=== PATIENT | male | born 1955 | race Caucasian/White ===

== ENCOUNTER 2016-12-24 10:04 | Emergency (ER) | payer OTHER ==
[~2016-12-24] VITALS: Ht 198.1 cm; Wt 120.2 kg
[~2016-12-24 10:04] MED LIST: FLEXERIL10 MG PO; FLEXERIL5 MG PO; FLONASE 0.05% 121 EA NAS; HYDROCODONE BIT1 T11 PO; KEFLEX500 MG PO; MOTRIN800 MG PO; NKHM; NORCO 325 MG-101 TAB PO; SALETO800 MG PO; TRAMADOL50 MG PO
[2016-12-24] MEDS ORDERED: 'PARAFON FORTE500 M1 PO (10:38)
[2016-12-24] MEDS ORDERED: PREDNISONE10 MG PO (10:38)
== END 2016-12-24 11:31 | disposition home or self-care (01) ==
LOC: ED 10:04
DX: M54.5 Low back pain (principal); G89.29 Other chronic pain; R03.0 Elevated blood-pressure reading, without diagnosis of hypertension; F17.200 Nicotine dependence, unspecified, uncomplicated; Z88.0 Allergy status to penicillin

== ENCOUNTER 2018-08-07 16:06 | Emergency (ER) | payer MEDICARE ==
[~2018-08-07] VITALS: Ht 198.1 cm; Wt 129.3 kg
[~2018-08-07 16:06] MED LIST changes: +'PARAFON FORTE500 M1 PO; +PREDNISONE10 MG PO
== END 2018-08-07 17:19 | disposition home or self-care (01) ==
LOC: ED 16:06
DX: R60.0 Localized edema (principal); G89.29 Other chronic pain; K21.9 Gastro-esophageal reflux disease without esophagitis; Z79.899 Other long term (current) drug therapy; Z88.0 Allergy status to penicillin

== ENCOUNTER 2019-04-07 09:13 | Emergency (ER) | payer MEDICARE ==
[~2019-04-07] VITALS: Ht 198.1 cm; Wt 131.5 kg
[2019-04-07] MEDS ORDERED: NORCO 5-325 TA1 EACH PO (09:48)
[2019-04-07] MEDS ORDERED: CYCLOBENZAPRINE5 M3 PO (09:48)
[2019-04-07] MEDS ORDERED: NAPROSYN500 MG PO (09:48)
== END 2019-04-07 09:57 | disposition home or self-care (01) ==
LOC: ED 09:13
DX: M54.16 Radiculopathy, lumbar region (principal); M54.42 Lumbago with sciatica, left side; Z88.0 Allergy status to penicillin

== ENCOUNTER 2019-08-22 16:54 | Emergency (ER) | payer MEDICARE ==
[~2019-08-22 16:54] MED LIST changes: +CYCLOBENZAPRINE5 M3 PO; +NAPROSYN500 MG PO; +NORCO 5-325 TA1 EACH PO
== END 2019-08-22 17:12 | disposition left against medical advice (07) ==
LOC: ED 16:54
DX: R11.0 Nausea (principal); Z53.21 Procedure and treatment not carried out due to patient leaving prior to being seen by health care provider

== ENCOUNTER → 2020-01-20 | Outpatient (CLI) | payer MEDICARE ==
[~2020-01-20] MED LIST changes: +Carafate1 GM PO; +PROTONIX40 MG PO
== END | disposition home or self-care (01) ==
LOC: COVID19 09:32
PROVIDERS: ATTEND Family Medicine
DX: Z20.828 Contact with and (suspected) exposure to other viral communicable diseases (principal)

== ENCOUNTER 2020-01-26 05:09 | Inpatient (IN) | payer MEDICARE ==
[~2020-01-26] VITALS: Wt 155.0 kg
[~2020-01-26 05:09] MED LIST changes: -Carafate1 GM PO; -PROTONIX40 MG PO
[2020-01-26 05:17] VITALS: BP 114/72
[2020-01-26 06:33] LABS: BASO # 0.1 10*3/uL (0.0-0.1); BASO % 0.3 % (0.0-1.0); HEMATOCRIT 36.8 % (42.0-52.0); LYMPH # 1.1 10*3/uL (1.3-4.4); LYMPH % 5.9 % (27.0-41.0); MEAN CELL VOLUME 90.9 fl (80.0-94.0); MEAN CORPUSCULAR HGB 31.1 pg (27.0-31.0); MEAN CORPUSCULAR HGB CONC 34.2 g/dl (33.0-37.0); MEAN PLATELET VOLUME 10.4 fl (9.6-12.3); MONO # 0.6 10*3/uL (0.1-1.0); MONO % 3.4 % (3.0-9.0); NEUT # 16.5 10*3/uL (2.3-7.9); NEUT % 89.9 % (47.0-73.0); PLATELET COUNT AUTOMATED 281 10*3/uL (130-400); RED BLOOD COUNT 4.05 10*6/uL (4.50-5.90); RED CELL DISTRI WIDTH 11.9 % (0-14.5); WHITE BLOOD COUNT 18.4 10*3/uL (4.8-10.8)
[2020-01-26 06:49] LABS: INTERNATIONAL NORM RATIO 1.1 (2.0-3.5)
[2020-01-26 06:50] LABS: ALBUMIN 3.5 gm/dl (3.1-4.5); ALKALINE PHOSPHATASE 56 U/L (45-117); BUN 40 mg/dl (7-24); CHLORIDE 107 mmol/L (98-107); CREATININE 1.13 mg/dL (0.70-1.30); POTASSIUM 3.3 mmol/L (3.5-5.1); SGOT/AST 22 IU/L (3-35); SGPT/ALT 43 U/L (12-78); SODIUM 141 mmol/L (136-145); TOTAL PROTEIN 6.8 gm/dL (6.4-8.2)
[2020-01-26 06:58] LABS: TROPONIN I < 0.015 ng/ml (<0.045)
[2020-01-26 07:35] VITALS: BP 102/70
[2020-01-26 10:03] VITALS: BP 108/48
[2020-01-26 10:43] LABS: HEMATOCRIT 35.1 % (42.0-52.0)
[2020-01-26 11:42] VITALS: BP 92/71
[2020-01-26 16:00] VITALS: BP 122/69
[2020-01-26 18:50] LABS: BILIRUBIN Negative (Negative); BLOOD Negative (Negative); CLARITY Clear (Clear); COLOR Yellow (Yellow); GLUCOSE Negative (Negative); KETONE Negative (Negative); LEUKO ESTERASE Negative (Negative); NITRITE Negative (Negative); SPECIFIC GRAVITY 1.025 (1.001-1.030)
[2020-01-26 18:57] LABS: EPITHELIAL CELLS 0-2; RBC 0-2 rbc/hpf (0-2)
[2020-01-26 18:58] LABS: BACTERIA 1+
[2020-01-26 20:00] VITALS: BP 110/49
[2020-01-27] VITALS (23 sets, daily range): BP systolic 83–127; BP diastolic 46–75
[2020-01-27 07:07] LABS: BUN 41 mg/dl (7-24); CHLORIDE 109 mmol/L (98-107); CHOLESTEROL 115 mg/dL (<200); CREATININE 1.09 mg/dL (0.70-1.30); POTASSIUM 3.6 mmol/L (3.5-5.1); SODIUM 141 mmol/L (136-145); TRIGLYCERIDES 119 mg/dl (<150); VLDL CHOLESTEROL 24 mg/dL (6-40)
[2020-01-27 07:15] LABS: HDL CHOLESTEROL 27 mg/dl (40-60); LDL CHOLESTEROL 64 mg/dL (9-159)
[2020-01-27 07:27] LABS: BASO # 0.1 10*3/uL (0.0-0.1); BASO % 0.6 % (0.0-1.0); EOS # 0.1 10*3/uL (0.0-0.4); EOS % 0.6 % (1.0-4.0); HEMATOCRIT 25.9 % (42.0-52.0); LYMPH # 2.1 10*3/uL (1.3-4.4); MEAN CORPUSCULAR HGB 31.3 pg (27.0-31.0); MEAN CORPUSCULAR HGB CONC 32.8 g/dl (33.0-37.0); MEAN PLATELET VOLUME 11.1 fl (9.6-12.3); MONO # 0.7 10*3/uL (0.1-1.0); MONO % 5.3 % (3.0-9.0); NEUT # 10.2 10*3/uL (2.3-7.9); PLATELET COUNT AUTOMATED 226 10*3/uL (130-400); RED BLOOD COUNT 2.72 10*6/uL (4.50-5.90); RED CELL DISTRI WIDTH 12.4 % (0-14.5); WHITE BLOOD COUNT 13.3 10*3/uL (4.8-10.8)
[2020-01-27 07:31] LABS: MEAN CELL VOLUME 95.2 fl (80.0-94.0)
[2020-01-27 20:46] LABS: HEMATOCRIT 20.5 % (42.0-52.0)
[2020-01-28] VITALS (22 sets, daily range): BP systolic 88–178; BP diastolic 50–113
[2020-01-28 02:26] LABS: HEMATOCRIT 19.3 % (42.0-52.0)
[2020-01-28 08:12] LABS: MEAN CORPUSCULAR HGB 31.5 pg (27.0-31.0); MEAN CORPUSCULAR HGB CONC 34.4 g/dl (33.0-37.0); MEAN PLATELET VOLUME 10.9 fl (9.6-12.3); NUCLEATED RED BLOOD CELL 0.3 10*3/uL (0.0-0.0); NUCLEATED RED BLOOD CELL 1.3 % (0.0-0.0); RED BLOOD COUNT 2.13 10*6/uL (4.50-5.90); RED CELL DISTRI WIDTH 13.8 % (0-14.5); WHITE BLOOD COUNT 20.5 10*3/uL (4.8-10.8)
[2020-01-28 08:15] LABS: MEAN CELL VOLUME 91.5 fl (80.0-94.0); PLATELET COUNT AUTOMATED 150 10*3/uL (130-400)
[2020-01-28 08:19] LABS: HEMATOCRIT 19.5 % (42.0-52.0)
[2020-01-28 08:32] LABS: PLATELET SUFFICIENCY NORMAL (NORMAL); POLYCHROMASIA SLIGHT; TOTAL CELLS COUNTED 100 #CELLS
[2020-01-28 08:33] LABS: OVALOCYTES FEW
[2020-01-28 15:27] LABS: ABG BASE EXCESS -3.2 mmol/L (-2.0-2.0); ARTERIAL BLOOD GAS PH 7.392 (7.35-7.45)
[2020-01-28 16:18] LABS: HEMATOCRIT 22.4 % (42.0-52.0); MEAN CELL VOLUME 92.2 fl (80.0-94.0); MEAN CORPUSCULAR HGB 29.6 pg (27.0-31.0); MEAN CORPUSCULAR HGB CONC 32.1 g/dl (33.0-37.0); MEAN PLATELET VOLUME 10.7 fl (9.6-12.3); NUCLEATED RED BLOOD CELL 0.8 10*3/uL (0.0-0.0); NUCLEATED RED BLOOD CELL 2.6 % (0.0-0.0); PLATELET COUNT AUTOMATED 170 10*3/uL (130-400); RED BLOOD COUNT 2.43 10*6/uL (4.50-5.90); WHITE BLOOD COUNT 29.3 10*3/uL (4.8-10.8)
[2020-01-28 16:37] LABS: PLATELET SUFFICIENCY NORMAL (NORMAL); TOTAL CELLS COUNTED 100 #CELLS
[2020-01-28 19:50] LABS: ABG BASE EXCESS -1.9 mmol/L (-2.0-2.0); ARTERIAL BLOOD GAS PH 7.44 (7.35-7.45)
[2020-01-29] VITALS (16 sets, daily range): BP systolic 99–140; BP diastolic 46–74
[2020-01-29 06:09] LABS: ALBUMIN 2.3 gm/dl (3.1-4.5); BUN 36 mg/dl (7-24); CHLORIDE 111 mmol/L (98-107); POTASSIUM 3.4 mmol/L (3.5-5.1); SGOT/AST 10 IU/L (3-35); SGPT/ALT 18 U/L (12-78); SODIUM 141 mmol/L (136-145)
[2020-01-29 06:12] LABS: ALKALINE PHOSPHATASE 31 U/L (45-117); CREATININE 1.07 mg/dL (0.70-1.30); TOTAL PROTEIN 4.6 gm/dL (6.4-8.2)
[2020-01-29 06:26] LABS: MEAN CELL VOLUME 91.7 fl (80.0-94.0); MEAN CORPUSCULAR HGB 30.9 pg (27.0-31.0); MEAN CORPUSCULAR HGB CONC 33.7 g/dl (33.0-37.0); NUCLEATED RED BLOOD CELL 1.1 10*3/uL (0.0-0.0); NUCLEATED RED BLOOD CELL 4.8 % (0.0-0.0); PLATELET COUNT AUTOMATED 160 10*3/uL (130-400); RED BLOOD COUNT 2.04 10*6/uL (4.50-5.90); WHITE BLOOD COUNT 22.4 10*3/uL (4.8-10.8)
[2020-01-29 06:32] LABS: HEMATOCRIT 18.7 % (42.0-52.0)
[2020-01-29 07:14] LABS: BASOPHILS 1 % (0-1); TOTAL CELLS COUNTED 100 #CELLS
[2020-01-29 07:15] LABS: PLATELET SUFFICIENCY NORMAL (NORMAL); POLYCHROMASIA SLIGHT
[2020-01-29 07:52] LABS: ABG BASE EXCESS -0.5 mmol/L (-2.0-2.0); ARTERIAL BLOOD GAS PH 7.433 (7.35-7.45)
[2020-01-29 16:23] LABS: ABG BASE EXCESS 0.2 mmol/L (-2.0-2.0); ARTERIAL BLOOD GAS PH 7.456 (7.35-7.45)
[2020-01-29 16:58] LABS: HEMATOCRIT 23.3 % (42.0-52.0); MEAN CELL VOLUME 90.7 fl (80.0-94.0); MEAN CORPUSCULAR HGB 30.7 pg (27.0-31.0); MEAN CORPUSCULAR HGB CONC 33.9 g/dl (33.0-37.0); MEAN PLATELET VOLUME 10.9 fl (9.6-12.3); NUCLEATED RED BLOOD CELL 1.1 10*3/uL (0.0-0.0); NUCLEATED RED BLOOD CELL 4.9 % (0.0-0.0); PLATELET COUNT AUTOMATED 147 10*3/uL (130-400); RED BLOOD COUNT 2.57 10*6/uL (4.50-5.90); RED CELL DISTRI WIDTH 14.6 % (0-14.5); WHITE BLOOD COUNT 21.9 10*3/uL (4.8-10.8)
[2020-01-29 17:31] LABS: PLATELET SUFFICIENCY NORMAL (NORMAL); TOTAL CELLS COUNTED 100 #CELLS
[2020-01-29 17:32] LABS: POLYCHROMASIA SLIGHT
[2020-01-29 19:54] LABS: ABG BASE EXCESS 0.9 mmol/L (-2.0-2.0); ARTERIAL BLOOD GAS PH 7.485 (7.35-7.45)
[2020-01-30] VITALS: BP 125/45
[2020-01-30 04:00] VITALS: BP 131/51
[2020-01-30 06:14] LABS: MEAN CELL VOLUME 92.5 fl (80.0-94.0); MEAN CORPUSCULAR HGB 30.8 pg (27.0-31.0); MEAN CORPUSCULAR HGB CONC 33.3 g/dl (33.0-37.0); MEAN PLATELET VOLUME 11.2 fl (9.6-12.3); NUCLEATED RED BLOOD CELL 0.5 10*3/uL (0.0-0.0); NUCLEATED RED BLOOD CELL 3.1 % (0.0-0.0); PLATELET COUNT AUTOMATED 148 10*3/uL (130-400); RED BLOOD COUNT 2.27 10*6/uL (4.50-5.90); RED CELL DISTRI WIDTH 14.6 % (0-14.5); WHITE BLOOD COUNT 17.6 10*3/uL (4.8-10.8)
[2020-01-30 06:15] LABS: ALBUMIN 2.1 gm/dl (3.1-4.5); CHLORIDE 114 mmol/L (98-107); CREATININE 0.78 mg/dL (0.70-1.30); POTASSIUM 3.1 mmol/L (3.5-5.1); SGOT/AST 23 IU/L (3-35); SGPT/ALT 16 U/L (12-78); SODIUM 146 mmol/L (136-145)
[2020-01-30 06:17] LABS: ALKALINE PHOSPHATASE 40 U/L (45-117); TOTAL PROTEIN 4.5 gm/dL (6.4-8.2)
[2020-01-30 06:20] LABS: BUN 21 mg/dl (7-24)
[2020-01-30 08:00] VITALS: BP 134/56
[2020-01-30 08:12] LABS: BASOPHILS 1 % (0-1); PLATELET SUFFICIENCY NORMAL (NORMAL); POLYCHROMASIA SLIGHT; TOTAL CELLS COUNTED 100 #CELLS
[2020-01-30 08:13] LABS: SCHISTOCYTES FEW
[2020-01-30 12:00] VITALS: BP 146/47
[2020-01-30 13:03] LABS: HEMATOCRIT 21.7 % (42.0-52.0); MEAN CELL VOLUME 93.5 fl (80.0-94.0); MEAN CORPUSCULAR HGB CONC 33.2 g/dl (33.0-37.0); NUCLEATED RED BLOOD CELL 0.3 10*3/uL (0.0-0.0); NUCLEATED RED BLOOD CELL 2.1 % (0.0-0.0); PLATELET COUNT AUTOMATED 144 10*3/uL (130-400); RED BLOOD COUNT 2.32 10*6/uL (4.50-5.90); RED CELL DISTRI WIDTH 15.2 % (0-14.5); WHITE BLOOD COUNT 15.6 10*3/uL (4.8-10.8)
[2020-01-30 13:23] LABS: TOTAL CELLS COUNTED 100 #CELLS
[2020-01-30 13:24] LABS: PLATELET SUFFICIENCY NORMAL (NORMAL); POLYCHROMASIA SLIGHT
[2020-01-30 13:27] LABS: BUN 17 mg/dl (7-24); CHLORIDE 112 mmol/L (98-107); CREATININE 0.79 mg/dL (0.70-1.30); POTASSIUM 3.3 mmol/L (3.5-5.1); SODIUM 143 mmol/L (136-145)
[2020-01-30 16:00] VITALS: BP 138/49
[2020-01-30 20:00] VITALS: BP 129/77
[2020-01-31] VITALS (13 sets, daily range): BP systolic 109–140; BP diastolic 51–87
[2020-01-31 05:55] LABS: ALKALINE PHOSPHATASE 77 U/L (45-117); BUN 12 mg/dl (7-24); CHLORIDE 111 mmol/L (98-107); CREATININE 0.72 mg/dL (0.70-1.30); POTASSIUM 3.1 mmol/L (3.5-5.1); SGOT/AST 33 IU/L (3-35); SGPT/ALT 25 U/L (12-78); SODIUM 141 mmol/L (136-145); TOTAL PROTEIN 4.8 gm/dL (6.4-8.2)
[2020-01-31 06:01] LABS: HEMATOCRIT 21.1 % (42.0-52.0); MEAN CELL VOLUME 93.4 fl (80.0-94.0); MEAN CORPUSCULAR HGB 30.5 pg (27.0-31.0); MEAN CORPUSCULAR HGB CONC 32.7 g/dl (33.0-37.0); NUCLEATED RED BLOOD CELL 0.2 10*3/uL (0.0-0.0); NUCLEATED RED BLOOD CELL 1.7 % (0.0-0.0); PLATELET COUNT AUTOMATED 155 10*3/uL (130-400); RED BLOOD COUNT 2.26 10*6/uL (4.50-5.90); RED CELL DISTRI WIDTH 15.8 % (0-14.5); WHITE BLOOD COUNT 11.4 10*3/uL (4.8-10.8)
[2020-01-31 08:24] LABS: PLATELET SUFFICIENCY NORMAL (NORMAL); POLYCHROMASIA MODERATE; TOTAL CELLS COUNTED 100 #CELLS
[2020-01-31 14:17] LABS: HEMATOCRIT 26.7 % (42.0-52.0); MEAN CELL VOLUME 92.1 fl (80.0-94.0); MEAN CORPUSCULAR HGB 30.7 pg (27.0-31.0); MEAN CORPUSCULAR HGB CONC 33.3 g/dl (33.0-37.0); NUCLEATED RED BLOOD CELL 0.2 10*3/uL (0.0-0.0); NUCLEATED RED BLOOD CELL 1.8 % (0.0-0.0); PLATELET COUNT AUTOMATED 146 10*3/uL (130-400); RED CELL DISTRI WIDTH 16.1 % (0-14.5); WHITE BLOOD COUNT 10.4 10*3/uL (4.8-10.8)
[2020-01-31 14:30] LABS: BUN 11 mg/dl (7-24); CHLORIDE 111 mmol/L (98-107); CREATININE 0.72 mg/dL (0.70-1.30); SODIUM 141 mmol/L (136-145)
[2020-01-31 14:45] LABS: BASOPHILS 1 % (0-1); PLATELET SUFFICIENCY NORMAL (NORMAL); POLYCHROMASIA SLIGHT; TOTAL CELLS COUNTED 100 #CELLS
[2020-02-01] VITALS: BP 129/70
[2020-02-01 07:22] LABS: BUN 9 mg/dl (7-24); CHLORIDE 109 mmol/L (98-107); CREATININE 0.76 mg/dL (0.70-1.30); HEMATOCRIT 27.9 % (42.0-52.0); MEAN CELL VOLUME 92.7 fl (80.0-94.0); MEAN CORPUSCULAR HGB 30.6 pg (27.0-31.0); MEAN PLATELET VOLUME 10.1 fl (9.6-12.3); NUCLEATED RED BLOOD CELL 0.1 10*3/uL (0.0-0.0); NUCLEATED RED BLOOD CELL 1.1 % (0.0-0.0); PLATELET COUNT AUTOMATED 187 10*3/uL (130-400); RED BLOOD COUNT 3.01 10*6/uL (4.50-5.90); RED CELL DISTRI WIDTH 16.4 % (0-14.5); SODIUM 141 mmol/L (136-145); WHITE BLOOD COUNT 9.4 10*3/uL (4.8-10.8)
[2020-02-01 08:00] VITALS: BP 105/77
[2020-02-01 09:09] LABS: BASOPHILS 1 % (0-1); PLATELET SUFFICIENCY NORMAL (NORMAL); POLYCHROMASIA MODERATE; TOTAL CELLS COUNTED 100 #CELLS
[2020-02-01] MEDS ORDERED: PROTONIX40 MG PO (10:51)
[2020-02-01] MEDS ORDERED: Carafate1 GM PO (10:51)
== END 2020-02-01 11:00 | disposition home or self-care (01) | DRG 377 ==
LOC: ED 05:09 → EDHOLD 10:31 → ICCU 10:31 → 5E 10:31 → ICCU 01-28 12:00 → 5E 01-31 14:38
PROVIDERS: Emergency Medicine; Hospitalist; Internal Medicine; Internal Medicine Critical Care Medicine; Registered Nurse; Social Worker Clinical; Student in an Organized Health Care Education/Training Program; Surgery; ADMIT Emergency Medicine; ATTEND Emergency Medicine
PROC: 02HV33Z Insertion of Infusion Device into Superior Vena Cava, Percutaneous Approach (ICD-10-PCS; 2020-01-26)
PROC: 0HQ1XZZ Repair Face Skin, External Approach (ICD-10-PCS; 2020-01-26)
PROC: 30233N1 Transfusion of Nonautologous Red Blood Cells into Peripheral Vein, Percutaneous Approach (ICD-10-PCS; 2020-01-27)
PROC: 0DB98ZX Excision of Duodenum, Via Natural or Artificial Opening Endoscopic, Diagnostic (ICD-10-PCS; 2020-01-27)
PROC: 0DB68ZX Excision of Stomach, Via Natural or Artificial Opening Endoscopic, Diagnostic (ICD-10-PCS; 2020-01-27)
PROC: 30233K1 Transfusion of Nonautologous Frozen Plasma into Peripheral Vein, Percutaneous Approach (ICD-10-PCS; principal; 2020-01-28)
PROC: 30233R1 Transfusion of Nonautologous Platelets into Peripheral Vein, Percutaneous Approach (ICD-10-PCS; 2020-01-28)
PROC: 0W3P8ZZ Control Bleeding in Gastrointestinal Tract, Via Natural or Artificial Opening Endoscopic (ICD-10-PCS; 2020-01-28)
PROC: 0BH17EZ Insertion of Endotracheal Airway into Trachea, Via Natural or Artificial Opening (ICD-10-PCS; 2020-01-28)
PROC: 5A1935Z Respiratory Ventilation, Less than 24 Consecutive Hours (ICD-10-PCS; 2020-01-28)
PROC: 5A1935Z Respiratory Ventilation, Less than 24 Consecutive Hours (ICD-10-PCS; 2020-01-29)
DX: K26.4 Chronic or unspecified duodenal ulcer with hemorrhage (principal); E43 Unspecified severe protein-calorie malnutrition; K21.01 Gastro-esophageal reflux disease with esophagitis, with bleeding; D62 Acute posthemorrhagic anemia; I95.1 Orthostatic hypotension; K29.71 Gastritis, unspecified, with bleeding; K29.81 Duodenitis with bleeding; E87.6 Hypokalemia; S01.81XA Laceration without foreign body of other part of head, initial encounter; E16.2 Hypoglycemia, unspecified; W19.XXXA Unspecified fall, initial encounter; E66.9 Obesity, unspecified; E83.39 Other disorders of phosphorus metabolism; E87.8 Other disorders of electrolyte and fluid balance, not elsewhere classified; Z88.0 Allergy status to penicillin; Z79.899 Other long term (current) drug therapy; Z79.1 Long term (current) use of non-steroidal anti-inflammatories (NSAID); Z68.31 Body mass index [BMI] 31.0-31.9, adult; Y93.89 Activity, other specified; Y92.89 Other specified places as the place of occurrence of the external cause; Y99.8 Other external cause status; Z88.5 Allergy status to narcotic agent; Z88.8 Allergy status to other drugs, medicaments and biological substances

== ENCOUNTER 2020-02-03 10:53 | Observation (INO) | payer MEDICARE ==
[~2020-02-03] VITALS: Ht 198.1 cm; Wt 119.0 kg
[~2020-02-03 10:53] MED LIST changes: +Carafate1 GM PO; +PROTONIX40 MG PO
[2020-02-03 11:54] VITALS: BP 92/52
[2020-02-03 13:12] LABS: HEMATOCRIT 37.8 % (42.0-52.0); MEAN CELL VOLUME 93.6 fl (80.0-94.0); MEAN CORPUSCULAR HGB 30.4 pg (27.0-31.0); MEAN CORPUSCULAR HGB CONC 32.5 g/dl (33.0-37.0); MEAN PLATELET VOLUME 9.6 fl (9.6-12.3); PLATELET COUNT AUTOMATED 379 10*3/uL (130-400); RED BLOOD COUNT 4.04 10*6/uL (4.50-5.90); RED CELL DISTRI WIDTH 17.2 % (0-14.5)
[2020-02-03 13:24] LABS: ACT PARTIAL THROMBO TIME 26.5 SECONDS (20.0-32.1); INTERNATIONAL NORM RATIO 1.2 (2.0-3.5)
[2020-02-03 13:28] LABS: ALKALINE PHOSPHATASE 205 U/L (45-117); BUN 25 mg/dl (7-24); CHLORIDE 101 mmol/L (98-107); CREATININE 1.48 mg/dL (0.70-1.30); LIPASE 222 U/L (73-393); POTASSIUM 2.8 mmol/L (3.5-5.1); SGOT/AST 72 IU/L (3-35); SGPT/ALT 136 U/L (12-78); SODIUM 139 mmol/L (136-145); TOTAL PROTEIN 7.5 gm/dL (6.4-8.2)
[2020-02-03 13:29] LABS: TROPONIN I < 0.015 ng/ml (<0.045)
[2020-02-03 13:33] LABS: TOTAL CELLS COUNTED 100 #CELLS
[2020-02-03 13:34] LABS: PLATELET SUFFICIENCY NORMAL (NORMAL)
[2020-02-03 14:00] VITALS: BP 103/78
--- NOTE | 2020-02-03 14:36 | NUR ---
PT STATES "I AM UNABLE TO PEE AT THIS TIME AND I DON'T WANT CATHED"
[2020-02-03 17:22] VITALS: BP 110/66
[2020-02-03 19:20] VITALS: BP 103/56
[2020-02-03 21:40] VITALS: BP 109/74
[2020-02-03 21:45] VITALS: BP 103/78
--- NOTE | 2020-02-03 21:45 | NUR ---
A 64, admitted to , under the services of JACE Patel DO with a diagnosis of NAUSEA & VOMITING/DEHYDRATION/HYPOKALEMIA. Chief complaint is TIRED AND HEARTBURN. Patient arrived via stretcher from ER. Monitor applied. Initial assessment completed. Vital signs taken and recorded. JACE PATEL DO notified of admission to the unit. Orders received. See assessment for past medical history, medications and allergies. Patient and/or family oriented to unit. [facility] reviewed. Clothing/patient valuable form completed. DOUGLAS SANCHEZ
[2020-02-04] VITALS: BP 116/56
[2020-02-04 05:48] LABS: BILIRUBIN Negative (Negative); BLOOD Trace-Lysed (Negative); CLARITY Clear (Clear); COLOR Yellow (Yellow); GLUCOSE Negative (Negative); KETONE Negative (Negative); LEUKO ESTERASE Negative (Negative); NITRITE Negative (Negative); SPECIFIC GRAVITY 1.015 (1.001-1.030); UROBILINOGEN 0.2 E.U./dl (0.0-1.0)
[2020-02-04 06:02] LABS: WBC 0-2 wbc/hpf (0-5)
[2020-02-04 06:50] LABS: BASO % 0.3 % (0.0-1.0); EOS # 0.2 10*3/uL (0.0-0.4); EOS % 1.3 % (1.0-4.0); HEMATOCRIT 31.9 % (42.0-52.0); LYMPH # 1.7 10*3/uL (1.3-4.4); LYMPH % 12.5 % (27.0-41.0); MEAN CELL VOLUME 95.2 fl (80.0-94.0); MEAN CORPUSCULAR HGB 30.7 pg (27.0-31.0); MEAN CORPUSCULAR HGB CONC 32.3 g/dl (33.0-37.0); MEAN PLATELET VOLUME 9.6 fl (9.6-12.3); MONO # 0.8 10*3/uL (0.1-1.0); MONO % 6.1 % (3.0-9.0); NEUT # 10.4 10*3/uL (2.3-7.9); NEUT % 78.7 % (47.0-73.0); PLATELET COUNT AUTOMATED 318 10*3/uL (130-400); RED BLOOD COUNT 3.35 10*6/uL (4.50-5.90); RED CELL DISTRI WIDTH 16.9 % (0-14.5); WHITE BLOOD COUNT 13.2 10*3/uL (4.8-10.8)
[2020-02-04 07:02] LABS: ACT PARTIAL THROMBO TIME 26.5 SECONDS (20.0-32.1); INTERNATIONAL NORM RATIO 1.2 (2.0-3.5)
[2020-02-04 07:06] LABS: ALBUMIN 2.4 gm/dl (3.1-4.5); ALKALINE PHOSPHATASE 140 U/L (45-117); BUN 18 mg/dl (7-24); CHLORIDE 106 mmol/L (98-107); CREATININE 0.94 mg/dL (0.70-1.30); POTASSIUM 3.2 mmol/L (3.5-5.1); SGOT/AST 55 IU/L (3-35); SGPT/ALT 117 U/L (12-78); SODIUM 140 mmol/L (136-145); TOTAL PROTEIN 5.8 gm/dL (6.4-8.2)
--- NOTE | 2020-02-04 07:22 | NUR ---
DR DENT NOTIFIED OF CONSULT. KEEP PT NPO FOR NOW.
[2020-02-04 08:00] VITALS: BP 103/51
[2020-02-04 09:00] LABS: VITAMIN D, 25-HYDROXY 20.1 ng/mL (30-100)
--- NOTE | 2020-02-04 11:05 | NUR ---
PT WANTING TO LEAVE AMA. RE; AT [facility].
--- NOTE | 2020-02-04 11:09 | NUR ---
DR JOHNSON IN TO SEE PT. ORDERS RECEIVED TO CALL DR DENT FOR DIET ORDERS.
--- NOTE | 2020-02-04 11:14 | NUR ---
CALLED DR DENT HE STATES TO KEP PT NPO TILL HE ARRIVE WITHIN THE NEXT 2 HRS.
--- NOTE | 2020-02-04 11:40 | NUR ---
PT STATES HE CAN WAIT NO LONGER "I NEED TO GET TO MY " AMA PAPER PROVIDED. PT SIGNED MONITOR AND IV REMOVED.
--- NOTE | 2020-02-04 11:41 | NUR ---
MEDICATION FROM THE PHARMACY RETURNED TO PATIENT.
--- NOTE | 2020-02-04 11:44 | NUR ---
PLATE DRYING MACHINE TENDER ATTEMPTED TO REACH PATIENT VIA PHONE CALL. THERE WAS NO ANSWER. PLATE DRYING MACHINE TENDER TO FOLLOW UP WITH PATIENT AT A LATER TIME.
--- NOTE | 2020-02-04 11:45 | NUR ---
DR TAI NOTIFIED OF PT SIGNING OUT AMA.
== END 2020-02-04 11:45 | disposition left against medical advice (07) ==
LOC: ED 10:53 → 5E 15:51 → EDHOLD 15:51 → 5E 21:01
PROVIDERS: Emergency Medicine; Hospitalist; ADMIT Internal Medicine; ATTEND Internal Medicine
DX: N17.0 Acute kidney failure with tubular necrosis (principal); R11.2 Nausea with vomiting, unspecified; E44.0 Moderate protein-calorie malnutrition; R65.10 Systemic inflammatory response syndrome (SIRS) of non-infectious origin without acute organ dysfunction; E87.6 Hypokalemia; E86.0 Dehydration; D64.9 Anemia, unspecified; K21.9 Gastro-esophageal reflux disease without esophagitis

== ENCOUNTER → 2020-02-24 | Outpatient (CLI) | payer MEDICARE ==
[~2020-02-24] MED LIST changes: +DULOXETINE HCL60 MG PO; +GAVISCON ES TA1 EACH PO; +K-LOR 20MEQ20 ME1 PO
[2020-02-24 11:18] LABS: HEMATOCRIT 41.9 % (42.0-52.0); MEAN CELL VOLUME 96.8 fl (80.0-94.0); MEAN CORPUSCULAR HGB 30.7 pg (27.0-31.0); MEAN CORPUSCULAR HGB CONC 31.7 g/dl (33.0-37.0); MEAN PLATELET VOLUME 10.2 fl (9.6-12.3); RED BLOOD COUNT 4.33 10*6/uL (4.50-5.90); RED CELL DISTRI WIDTH 14.6 % (0-14.5); WHITE BLOOD COUNT 6.3 10*3/uL (4.8-10.8)
[2020-02-24 11:46] LABS: ALBUMIN 3.3 gm/dl (3.1-4.5); ALKALINE PHOSPHATASE 80 U/L (45-117); BUN 9 mg/dl (7-24); CHLORIDE 111 mmol/L (98-107); CHOLESTEROL 224 mg/dL (<200); FREE T4 1.17 ng/dl (0.76-1.46); HDL CHOLESTEROL 40 mg/dl (40-60); LDL CHOLESTEROL 162 mg/dL (9-159); POTASSIUM 3.5 mmol/L (3.5-5.1); SGOT/AST 14 IU/L (3-35); SGPT/ALT 26 U/L (12-78); SODIUM 142 mmol/L (136-145); TRIGLYCERIDES 109 mg/dl (<150); VLDL CHOLESTEROL 22 mg/dL (6-40)
[2020-02-24 13:07] LABS: VITAMIN D, 25-HYDROXY 20.1 ng/mL (30-100)
== END | disposition home or self-care (01) ==
LOC: LAB 10:38
PROVIDERS: ATTEND Family Medicine
DX: Z12.5 Encounter for screening for malignant neoplasm of prostate (principal); E78.00 Pure hypercholesterolemia, unspecified; E55.9 Vitamin D deficiency, unspecified; R53.83 Other fatigue; K92.2 Gastrointestinal hemorrhage, unspecified; F41.1 Generalized anxiety disorder; E74.00 Glycogen storage disease, unspecified

== ENCOUNTER 2020-03-09 00:41 | Emergency (ER) | payer MEDICARE ==
[~2020-03-09] VITALS: Ht 198.1 cm; Wt 120.2 kg
[~2020-03-09 00:41] MED LIST changes: -DULOXETINE HCL60 MG PO; -GAVISCON ES TA1 EACH PO; -K-LOR 20MEQ20 ME1 PO
[2020-03-09 02:22] LABS: BILIRUBIN Negative (Negative); BLOOD Negative (Negative); CLARITY Clear (Clear); COLOR Yellow (Yellow); GLUCOSE Negative (Negative); KETONE Negative (Negative); LEUKO ESTERASE Negative (Negative); NITRITE Negative (Negative); PH 7.5 (4.5-8.0); SPECIFIC GRAVITY 1.015 (1.001-1.030); UROBILINOGEN 0.2 E.U./dl (0.0-1.0)
[2020-03-09 02:22] LABS: BASO # 0.1 10*3/uL (0.0-0.1); BASO % 0.8 % (0.0-1.0); EOS # 0.1 10*3/uL (0.0-0.4); EOS % 1.6 % (1.0-4.0); LYMPH # 1.2 10*3/uL (1.3-4.4); MEAN CELL VOLUME 93.5 fl (80.0-94.0); MEAN CORPUSCULAR HGB CONC 32.1 g/dl (33.0-37.0); MEAN PLATELET VOLUME 9.9 fl (9.6-12.3); MONO # 0.5 10*3/uL (0.1-1.0); MONO % 6.1 % (3.0-9.0); NEUT # 6.9 10*3/uL (2.3-7.9); NEUT % 77.2 % (47.0-73.0); PLATELET COUNT AUTOMATED 262 10*3/uL (130-400); RED CELL DISTRI WIDTH 13.2 % (0-14.5); WHITE BLOOD COUNT 8.9 10*3/uL (4.8-10.8)
[2020-03-09 02:35] LABS: INTERNATIONAL NORM RATIO 1.1 (2.0-3.5)
[2020-03-09 02:40] LABS: RBC 0-2 rbc/hpf (0-2); WBC 0-2 wbc/hpf (0-5)
[2020-03-09 02:40] LABS: ALBUMIN 3.5 gm/dl (3.1-4.5); ALKALINE PHOSPHATASE 71 U/L (45-117); BUN 11 mg/dl (7-24); CHLORIDE 109 mmol/L (98-107); CREATININE 1.11 mg/dL (0.70-1.30); SGOT/AST 10 IU/L (3-35); SGPT/ALT 23 U/L (12-78); SODIUM 142 mmol/L (136-145); TOTAL PROTEIN 7.3 gm/dL (6.4-8.2)
[2020-03-09 02:42] LABS: TROPONIN I < 0.015 ng/ml (<0.045)
[2020-03-09] MEDS ORDERED: K-LOR 20MEQ20 ME1 PO ×2 (05:17)
== END 2020-03-09 05:37 | disposition home or self-care (01) ==
LOC: ED 00:41
PROVIDERS: Emergency Medicine
DX: E87.6 Hypokalemia (principal); R41.0 Disorientation, unspecified; Z88.0 Allergy status to penicillin; Z79.899 Other long term (current) drug therapy; K21.9 Gastro-esophageal reflux disease without esophagitis

== ENCOUNTER 2020-03-20 15:22 | Emergency (ER) | payer MEDICARE ==
[~2020-03-20 15:22] MED LIST changes: +K-LOR 20MEQ20 ME1 PO
[2020-03-20 16:12] LABS: BASO # 0.1 10*3/uL (0.0-0.1); BASO % 0.9 % (0.0-1.0); EOS # 0.1 10*3/uL (0.0-0.4); EOS % 0.6 % (1.0-4.0); HEMATOCRIT 51.8 % (42.0-52.0); LYMPH # 1.3 10*3/uL (1.3-4.4); LYMPH % 12.3 % (27.0-41.0); MEAN CORPUSCULAR HGB 30.2 pg (27.0-31.0); MEAN CORPUSCULAR HGB CONC 32.8 g/dl (33.0-37.0); MEAN PLATELET VOLUME 10.3 fl (9.6-12.3); MONO # 0.5 10*3/uL (0.1-1.0); MONO % 5.1 % (3.0-9.0); NEUT # 8.5 10*3/uL (2.3-7.9); NEUT % 80.9 % (47.0-73.0); PLATELET COUNT AUTOMATED 316 10*3/uL (130-400); RED BLOOD COUNT 5.63 10*6/uL (4.50-5.90); RED CELL DISTRI WIDTH 12.8 % (0-14.5); WHITE BLOOD COUNT 10.6 10*3/uL (4.8-10.8)
[2020-03-20 16:23] LABS: INTERNATIONAL NORM RATIO 1.1 (2.0-3.5)
[2020-03-20 16:31] LABS: ALBUMIN 4.3 gm/dl (3.1-4.5); ALKALINE PHOSPHATASE 80 U/L (45-117); BUN 17 mg/dl (7-24); CHLORIDE 107 mmol/L (98-107); CREATININE 1.53 mg/dL (0.70-1.30); LIPASE 126 U/L (73-393); SGOT/AST 16 IU/L (3-35); SGPT/ALT 34 U/L (12-78); SODIUM 141 mmol/L (136-145); TOTAL PROTEIN 8.7 gm/dL (6.4-8.2)
[2020-03-20 16:33] LABS: TROPONIN I < 0.015 ng/ml (<0.045)
== END 2020-03-20 18:49 | disposition home or self-care (01) ==
LOC: ED 15:22
PROVIDERS: Physician Assistant
DX: K52.9 Noninfective gastroenteritis and colitis, unspecified (principal); K21.9 Gastro-esophageal reflux disease without esophagitis; Z88.0 Allergy status to penicillin; Z79.899 Other long term (current) drug therapy

== ENCOUNTER 2020-03-21 15:10 | Observation (INO) | payer MEDICARE ==
[~2020-03-21] VITALS: Ht 198.1 cm; Wt 115.9 kg
[2020-03-21 15:17] VITALS: BP 111/76
[2020-03-21 16:09] LABS: BASO # 0.1 10*3/uL (0.0-0.1); BASO % 0.5 % (0.0-1.0); EOS % 0.1 % (1.0-4.0); HEMATOCRIT 51.4 % (42.0-52.0); LYMPH # 1.4 10*3/uL (1.3-4.4); LYMPH % 9.3 % (27.0-41.0); MEAN CELL VOLUME 91.1 fl (80.0-94.0); MEAN CORPUSCULAR HGB 30.3 pg (27.0-31.0); MEAN CORPUSCULAR HGB CONC 33.3 g/dl (33.0-37.0); MEAN PLATELET VOLUME 10.5 fl (9.6-12.3); MONO # 0.8 10*3/uL (0.1-1.0); MONO % 5.5 % (3.0-9.0); NEUT # 12.8 10*3/uL (2.3-7.9); NEUT % 84.3 % (47.0-73.0); PLATELET COUNT AUTOMATED 337 10*3/uL (130-400); RED BLOOD COUNT 5.64 10*6/uL (4.50-5.90); RED CELL DISTRI WIDTH 12.8 % (0-14.5); WHITE BLOOD COUNT 15.2 10*3/uL (4.8-10.8)
[2020-03-21 16:23] LABS: CREATININE 1.8 mg/dL (0.70-1.30); POTASSIUM 3.3 mmol/L (3.5-5.1); TOTAL PROTEIN 8.5 gm/dL (6.4-8.2)
[2020-03-21 16:30] LABS: ACT PARTIAL THROMBO TIME 27.1 SECONDS (20.0-32.1); INTERNATIONAL NORM RATIO 1.1 (2.0-3.5)
[2020-03-21 18:31] VITALS: BP 114/86
[2020-03-21 20:00] VITALS: BP 166/85
[2020-03-21 20:40] VITALS: BP 142/85
[2020-03-22] VITALS: BP 144/92
[2020-03-22 08:00] VITALS: BP 128/72
[2020-03-22 12:00] VITALS: BP 127/89
== END 2020-03-22 16:20 | disposition home or self-care (01) ==
LOC: ED 15:10 → EDHOLD 17:43 → 5E 17:43
PROVIDERS: Emergency Medicine; ADMIT Internal Medicine; ATTEND Internal Medicine
DX: A08.4 Viral intestinal infection, unspecified (principal); R19.7 Diarrhea, unspecified; E86.0 Dehydration; E87.6 Hypokalemia; K21.9 Gastro-esophageal reflux disease without esophagitis; E43 Unspecified severe protein-calorie malnutrition; K26.9 Duodenal ulcer, unspecified as acute or chronic, without hemorrhage or perforation; R42 Dizziness and giddiness

== ENCOUNTER → 2020-03-24 | Outpatient (CLI) | payer MEDICARE ==
[~2020-03-24] MED LIST changes: +DULOXETINE HCL60 MG PO; +GAVISCON ES TA1 EACH PO
[2020-03-24 09:41] LABS: HEMATOCRIT 44.2 % (42.0-52.0); MEAN CELL VOLUME 92.3 fl (80.0-94.0); MEAN CORPUSCULAR HGB 30.3 pg (27.0-31.0); MEAN CORPUSCULAR HGB CONC 32.8 g/dl (33.0-37.0); MEAN PLATELET VOLUME 10.3 fl (9.6-12.3); RED BLOOD COUNT 4.79 10*6/uL (4.50-5.90); RED CELL DISTRI WIDTH 12.5 % (0-14.5)
[2020-03-24 10:17] LABS: ALBUMIN 3.4 gm/dl (3.1-4.5); BUN 12 mg/dl (7-24); CHLORIDE 111 mmol/L (98-107); POTASSIUM 3.5 mmol/L (3.5-5.1); SGOT/AST 8 IU/L (3-35); SGPT/ALT 25 U/L (12-78); SODIUM 143 mmol/L (136-145)
[2020-03-24 10:19] LABS: ALKALINE PHOSPHATASE 67 U/L (45-117); TOTAL PROTEIN 6.9 gm/dL (6.4-8.2)
[2020-03-25 03:06] LABS: TOTAL PROTEIN, SERUM 6.2 g/dL (6.0-8.5)
[2020-03-25 15:07] LABS: A/G RATIO 1.3 (0.7-1.7); ALBUMIN 3.5 g/dL (2.9-4.4); ALPHA-1-GLOBULIN 0.2 g/dL (0.0-0.4); ALPHA-2-GLOBULIN 0.7 g/dL (0.4-1.0); GAMMA GLOBULIN 0.8 g/dL (0.4-1.8); GLOBULIN, TOTAL 2.7 g/dL (2.2-3.9); M-SPIKE Not Observed g/dL (Not Observed)
[2020-03-26 14:10] LABS: ALBUMIN, URINE 34.2 % (.); ALPHA-2-GLOBULIN, URINE 11.5 % (.); GAMMA GLOBULIN, URINE 22.3 % (.); M-SPIKE, % Not Observed % (Not Observed); PROTEIN,TOTAL - URINE RANDOM 10.3 mg/dL (Not Estab.)
== END | disposition home or self-care (01) ==
LOC: LAB 09:25
PROVIDERS: ATTEND Family Medicine
DX: E88.09 Other disorders of plasma-protein metabolism, not elsewhere classified (principal); R79.89 Other specified abnormal findings of blood chemistry

== ENCOUNTER 2020-05-09 17:55 | Inpatient (IN) | payer MEDICARE ==
[~2020-05-09] VITALS: Ht 198.1 cm; Wt 117.9 kg
[~2020-05-09 17:55] MED LIST changes: -DULOXETINE HCL60 MG PO; -GAVISCON ES TA1 EACH PO
[2020-05-09 18:01] VITALS: BP 112/80
[2020-05-09 18:37] LABS: BASO # 0.1 10*3/uL (0.0-0.1); BASO % 0.7 % (0.0-1.0); EOS % 0.1 % (1.0-4.0); HEMATOCRIT 55.1 % (42.0-52.0); LYMPH # 0.9 10*3/uL (1.3-4.4); LYMPH % 7.1 % (27.0-41.0); MEAN CELL VOLUME 87.3 fl (80.0-94.0); MEAN CORPUSCULAR HGB 28.7 pg (27.0-31.0); MEAN CORPUSCULAR HGB CONC 32.8 g/dl (33.0-37.0); MEAN PLATELET VOLUME 10.5 fl (9.6-12.3); MONO # 0.5 10*3/uL (0.1-1.0); MONO % 3.6 % (3.0-9.0); NEUT # 11.6 10*3/uL (2.3-7.9); NEUT % 88.2 % (47.0-73.0); PLATELET COUNT AUTOMATED 323 10*3/uL (130-400); RED BLOOD COUNT 6.31 10*6/uL (4.50-5.90); RED CELL DISTRI WIDTH 12.2 % (0-14.5); WHITE BLOOD COUNT 13.2 10*3/uL (4.8-10.8)
[2020-05-09 18:52] LABS: ALBUMIN 4.3 gm/dl (3.1-4.5); ALKALINE PHOSPHATASE 85 U/L (45-117); BUN 23 mg/dl (7-24); CHLORIDE 100 mmol/L (98-107); CREATININE 2.27 mg/dL (0.70-1.30); LIPASE 75 U/L (73-393); POTASSIUM 3.5 mmol/L (3.5-5.1); SGOT/AST 14 IU/L (3-35); SGPT/ALT 35 U/L (12-78); SODIUM 135 mmol/L (136-145); TOTAL PROTEIN 9.2 gm/dL (6.4-8.2)
[2020-05-09 19:08] VITALS: BP 141/81
[2020-05-09 20:56] VITALS: BP 111/74
[2020-05-09 21:30] VITALS: BP 143/89
[2020-05-10] VITALS: BP 115/78
[2020-05-10 06:20] LABS: BASO # 0.1 10*3/uL (0.0-0.1); BASO % 0.6 % (0.0-1.0); EOS # 0.1 10*3/uL (0.0-0.4); EOS % 0.8 % (1.0-4.0); HEMATOCRIT 47.3 % (42.0-52.0); LYMPH # 1.9 10*3/uL (1.3-4.4); LYMPH % 16.7 % (27.0-41.0); MEAN CELL VOLUME 88.6 fl (80.0-94.0); MEAN CORPUSCULAR HGB 28.5 pg (27.0-31.0); MEAN CORPUSCULAR HGB CONC 32.1 g/dl (33.0-37.0); MEAN PLATELET VOLUME 10.3 fl (9.6-12.3); MONO # 0.9 10*3/uL (0.1-1.0); MONO % 7.8 % (3.0-9.0); NEUT # 8.6 10*3/uL (2.3-7.9); NEUT % 73.8 % (47.0-73.0); PLATELET COUNT AUTOMATED 277 10*3/uL (130-400); RED BLOOD COUNT 5.34 10*6/uL (4.50-5.90); RED CELL DISTRI WIDTH 12.4 % (0-14.5); WHITE BLOOD COUNT 11.6 10*3/uL (4.8-10.8)
[2020-05-10 06:29] LABS: CREATININE 1.84 mg/dL (0.70-1.30); POTASSIUM 2.9 mmol/L (3.5-5.1)
[2020-05-10 08:00] VITALS: BP 107/66
[2020-05-10 08:44] LABS: BILIRUBIN 1+ (Negative); BLOOD 1+ (Negative); CLARITY Cloudy (Clear); COLOR Dark Yellow (Yellow); GLUCOSE Negative (Negative); KETONE Trace (Negative); LEUKO ESTERASE Negative (Negative); NITRITE Negative (Negative); SPECIFIC GRAVITY >= 1.030 (1.001-1.030)
[2020-05-10 08:59] LABS: BACTERIA 2+; HYALINE CAST 41-50; MUCOUS 3+; RBC 16-20 rbc/hpf (0-2)
== END 2020-05-10 11:33 | disposition left against medical advice (07) | DRG 641 ==
LOC: ED 17:55 → EDHOLD 20:07 → 4E 20:56
PROVIDERS: Nurse Practitioner Family; ADMIT Internal Medicine; ATTEND Internal Medicine
DX: E87.6 Hypokalemia (principal); N17.9 Acute kidney failure, unspecified; D72.829 Elevated white blood cell count, unspecified; E86.0 Dehydration; Z53.29 Procedure and treatment not carried out because of patient's decision for other reasons; M48.00 Spinal stenosis, site unspecified; K21.9 Gastro-esophageal reflux disease without esophagitis; Z88.0 Allergy status to penicillin; Z80.1 Family history of malignant neoplasm of trachea, bronchus and lung; Z80.8 Family history of malignant neoplasm of other organs or systems

== ENCOUNTER → 2020-05-12 | Outpatient (CLI) | payer MEDICARE ==
[~2020-05-12] MED LIST changes: +DULOXETINE HCL60 MG PO; +GAVISCON ES TA1 EACH PO
[2020-05-12 15:59] LABS: ALBUMIN 3.8 gm/dl (3.1-4.5); CREATININE 1.5 mg/dL (0.70-1.30); POTASSIUM 3.2 mmol/L (3.5-5.1); TOTAL PROTEIN 7.8 gm/dL (6.4-8.2)
== END | disposition home or self-care (01) ==
LOC: LAB 14:43
PROVIDERS: ATTEND Family Medicine
DX: E86.0 Dehydration (principal)

== ENCOUNTER 2020-05-15 12:36 | Emergency (ER) | payer MEDICARE ==
[~2020-05-15] VITALS: Ht 198.1 cm; Wt 113.4 kg
[~2020-05-15 12:36] MED LIST changes: -DULOXETINE HCL60 MG PO; -GAVISCON ES TA1 EACH PO
[2020-05-15 13:07] LABS: BASO # 0.1 10*3/uL (0.0-0.1); BASO % 0.9 % (0.0-1.0); EOS # 0.1 10*3/uL (0.0-0.4); EOS % 0.7 % (1.0-4.0); HEMATOCRIT 48.5 % (42.0-52.0); LYMPH # 1.2 10*3/uL (1.3-4.4); LYMPH % 10.2 % (27.0-41.0); MEAN CELL VOLUME 85.8 fl (80.0-94.0); MEAN CORPUSCULAR HGB 29.4 pg (27.0-31.0); MEAN CORPUSCULAR HGB CONC 34.2 g/dl (33.0-37.0); MEAN PLATELET VOLUME 10.1 fl (9.6-12.3); MONO # 0.9 10*3/uL (0.1-1.0); MONO % 7.2 % (3.0-9.0); NEUT # 9.7 10*3/uL (2.3-7.9); NEUT % 80.8 % (47.0-73.0); PLATELET COUNT AUTOMATED 310 10*3/uL (130-400); RED BLOOD COUNT 5.65 10*6/uL (4.50-5.90); RED CELL DISTRI WIDTH 12.1 % (0-14.5); WHITE BLOOD COUNT 12.1 10*3/uL (4.8-10.8)
[2020-05-15 13:21] LABS: ALBUMIN 3.9 gm/dl (3.1-4.5); CREATININE 1.66 mg/dL (0.70-1.30); TOTAL PROTEIN 8.4 gm/dL (6.4-8.2)
[2020-05-15] MEDS ORDERED: K-LOR 20MEQ20 ME1 PO ×2 (15:57)
== END 2020-05-15 16:09 | disposition home or self-care (01) ==
LOC: ED 12:36
PROVIDERS: Emergency Medicine
DX: K52.9 Noninfective gastroenteritis and colitis, unspecified (principal); E87.6 Hypokalemia; N18.30 Chronic kidney disease, stage 3 unspecified; K21.9 Gastro-esophageal reflux disease without esophagitis; Z88.0 Allergy status to penicillin; Z79.899 Other long term (current) drug therapy; Z87.891 Personal history of nicotine dependence

== ENCOUNTER 2020-05-17 12:50 | Observation (INO) | payer MEDICARE ==
[~2020-05-17] VITALS: Ht 198.1 cm; Wt 112.5 kg
[2020-05-17 12:55] VITALS: BP 113/81
[2020-05-17 13:29] LABS: BASO # 0.1 10*3/uL (0.0-0.1); BASO % 0.9 % (0.0-1.0); EOS # 0.1 10*3/uL (0.0-0.4); EOS % 0.7 % (1.0-4.0); HEMATOCRIT 48.9 % (42.0-52.0); LYMPH # 1.3 10*3/uL (1.3-4.4); LYMPH % 11.5 % (27.0-41.0); MEAN CELL VOLUME 84.6 fl (80.0-94.0); MEAN CORPUSCULAR HGB 29.1 pg (27.0-31.0); MEAN CORPUSCULAR HGB CONC 34.4 g/dl (33.0-37.0); MEAN PLATELET VOLUME 10.5 fl (9.6-12.3); MONO # 0.8 10*3/uL (0.1-1.0); MONO % 6.6 % (3.0-9.0); NEUT # 9.2 10*3/uL (2.3-7.9); PLATELET COUNT AUTOMATED 325 10*3/uL (130-400); RED BLOOD COUNT 5.78 10*6/uL (4.50-5.90); RED CELL DISTRI WIDTH 12.2 % (0-14.5); WHITE BLOOD COUNT 11.5 10*3/uL (4.8-10.8)
[2020-05-17 13:45] LABS: ALBUMIN 4.2 gm/dl (3.1-4.5); ALKALINE PHOSPHATASE 73 U/L (45-117); BUN 22 mg/dl (7-24); CHLORIDE 101 mmol/L (98-107); CREATININE 1.37 mg/dL (0.70-1.30); LIPASE 123 U/L (73-393); SGOT/AST 18 IU/L (3-35); SGPT/ALT 34 U/L (12-78); SODIUM 136 mmol/L (136-145); TOTAL PROTEIN 8.7 gm/dL (6.4-8.2)
[2020-05-17 14:51] VITALS: BP 104/68
[2020-05-17 17:45] VITALS: BP 129/84
[2020-05-17 20:00] VITALS: BP 141/67
[2020-05-18] VITALS: BP 116/67
[2020-05-18 06:54] LABS: BASO # 0.1 10*3/uL (0.0-0.1); BASO % 1.4 % (0.0-1.0); EOS # 0.1 10*3/uL (0.0-0.4); EOS % 1.8 % (1.0-4.0); HEMATOCRIT 43.1 % (42.0-52.0); LYMPH # 1.9 10*3/uL (1.3-4.4); LYMPH % 26.8 % (27.0-41.0); MEAN CELL VOLUME 86.9 fl (80.0-94.0); MEAN CORPUSCULAR HGB 29.4 pg (27.0-31.0); MEAN CORPUSCULAR HGB CONC 33.9 g/dl (33.0-37.0); MEAN PLATELET VOLUME 10.8 fl (9.6-12.3); MONO # 0.6 10*3/uL (0.1-1.0); MONO % 8.2 % (3.0-9.0); NEUT # 4.4 10*3/uL (2.3-7.9); NEUT % 61.4 % (47.0-73.0); PLATELET COUNT AUTOMATED 245 10*3/uL (130-400); RED BLOOD COUNT 4.96 10*6/uL (4.50-5.90); RED CELL DISTRI WIDTH 12.5 % (0-14.5); WHITE BLOOD COUNT 7.2 10*3/uL (4.8-10.8)
[2020-05-18 07:06] LABS: BUN 18 mg/dl (7-24); CHLORIDE 108 mmol/L (98-107); CREATININE 1.05 mg/dL (0.70-1.30); POTASSIUM 3.1 mmol/L (3.5-5.1); SODIUM 139 mmol/L (136-145)
[2020-05-18 08:00] VITALS: BP 124/66
[2020-05-18 12:00] VITALS: BP 103/54
[2020-05-18 16:19] VITALS: BP 126/68
[2020-05-18 20:11] VITALS: BP 130/70
[2020-05-19] VITALS (8 sets, daily range): BP systolic 99–133; BP diastolic 61–86
[2020-05-20] VITALS: BP 133/80
[2020-05-20 07:03] LABS: BUN 11 mg/dl (7-24); CHLORIDE 110 mmol/L (98-107); CREATININE 1.06 mg/dL (0.70-1.30); POTASSIUM 3.3 mmol/L (3.5-5.1); SODIUM 142 mmol/L (136-145)
[2020-05-20 08:00] VITALS: BP 126/71
[2020-05-20] MEDS ORDERED: GAVISCON ES TA1 EACH PO (09:23)
[2020-05-20] MEDS ORDERED: DULOXETINE HCL60 MG PO (09:23)
== END 2020-05-20 10:45 | disposition home or self-care (01) ==
LOC: ED 12:50 → 5E 16:38 → EDHOLD 16:38 → 5E 17:15
PROVIDERS: Physician Assistant; ADMIT Internal Medicine; ATTEND Internal Medicine
DX: K22.10 Ulcer of esophagus without bleeding (principal); E87.6 Hypokalemia; F32.9 Major depressive disorder, single episode, unspecified; K21.00 Gastro-esophageal reflux disease with esophagitis, without bleeding; K26.9 Duodenal ulcer, unspecified as acute or chronic, without hemorrhage or perforation; K29.80 Duodenitis without bleeding; R11.2 Nausea with vomiting, unspecified; D64.9 Anemia, unspecified; K52.9 Noninfective gastroenteritis and colitis, unspecified; K44.9 Diaphragmatic hernia without obstruction or gangrene; R65.10 Systemic inflammatory response syndrome (SIRS) of non-infectious origin without acute organ dysfunction; K29.70 Gastritis, unspecified, without bleeding; F17.200 Nicotine dependence, unspecified, uncomplicated; N18.30 Chronic kidney disease, stage 3 unspecified; E86.0 Dehydration; R41.0 Disorientation, unspecified; R79.89 Other specified abnormal findings of blood chemistry; D72.829 Elevated white blood cell count, unspecified; R00.0 Tachycardia, unspecified; R74.01 Elevation of levels of liver transaminase levels; E44.0 Moderate protein-calorie malnutrition; R73.9 Hyperglycemia, unspecified; Z98.890 Other specified postprocedural states

== ENCOUNTER → 2020-05-28 | Outpatient (CLI) | payer MEDICARE ==
[~2020-05-28] MED LIST changes: +DULOXETINE HCL60 MG PO; +GAVISCON ES TA1 EACH PO
== END | disposition home or self-care (01) ==
LOC: NM 06:54
PROVIDERS: ATTEND Family Medicine
DX: R10.11 Right upper quadrant pain (principal)

== ENCOUNTER → 2020-09-22 | Outpatient (CLI) | payer MEDICARE ==
[2020-09-22 09:55] LABS: HEMATOCRIT 45.7 % (42.0-52.0); MEAN CELL VOLUME 92.5 fl (80.0-94.0); MEAN CORPUSCULAR HGB 30.6 pg (27.0-31.0); MEAN PLATELET VOLUME 9.8 fl (9.6-12.3); RED BLOOD COUNT 4.94 10*6/uL (4.50-5.90); RED CELL DISTRI WIDTH 12.7 % (0-14.5); WHITE BLOOD COUNT 7.2 10*3/uL (4.8-10.8)
[2020-09-22 10:48] LABS: ALBUMIN 3.9 gm/dl (3.1-4.5); ALKALINE PHOSPHATASE 66 U/L (45-117); BUN 16 mg/dl (7-24); CHLORIDE 109 mmol/L (98-107); CHOLESTEROL 183 mg/dL (<200); CREATININE 1.29 mg/dL (0.70-1.30); LDL CHOLESTEROL 128 mg/dL (9-159); POTASSIUM 3.6 mmol/L (3.5-5.1); SGOT/AST 16 IU/L (3-35); SGPT/ALT 34 U/L (12-78); SODIUM 140 mmol/L (136-145); TOTAL PROTEIN 7.4 gm/dL (6.4-8.2); TRIGLYCERIDES 78 mg/dl (<150)
[2020-09-23 06:07] LABS: TOTAL PROTEIN, SERUM 7.1 g/dL (6.0-8.5)
[2020-09-23 13:06] LABS: A/G RATIO 1.4 (0.7-1.7); ALBUMIN 4.1 g/dL (2.9-4.4); ALPHA-1-GLOBULIN 0.2 g/dL (0.0-0.4); ALPHA-2-GLOBULIN 0.7 g/dL (0.4-1.0); BETA GLOBULIN 1.1 g/dL (0.7-1.3); GAMMA GLOBULIN 0.9 g/dL (0.4-1.8); M-SPIKE Not Observed g/dL (Not Observed)
[2020-09-24 16:07] LABS: ALBUMIN, URINE 44.5 % (.); ALPHA-1-GLOBULIN, URINE 1.7 % (.); ALPHA-2-GLOBULIN, URINE 14.4 % (.); BETA GLOBULIN, URINE 22.5 % (.); GAMMA GLOBULIN, URINE 16.9 % (.); M-SPIKE, % Not Observed % (Not Observed); PROTEIN,TOTAL - URINE RANDOM 16.4 mg/dL (Not Estab.)
== END | disposition home or self-care (01) ==
LOC: LAB 09:40
PROVIDERS: ATTEND Family Medicine
DX: K52.9 Noninfective gastroenteritis and colitis, unspecified (principal); D72.829 Elevated white blood cell count, unspecified; E88.09 Other disorders of plasma-protein metabolism, not elsewhere classified; E87.6 Hypokalemia; Z79.899 Other long term (current) drug therapy

== ENCOUNTER 2021-02-09 06:18 | Emergency (ER) | payer MEDICARE ==
[~2021-02-09] VITALS: Ht 5486 cm; Wt 81.6 kg
[2021-02-09 06:41] LABS: BASO # 0.1 10*3/uL (0.0-0.1); BASO % 0.9 % (0.0-1.0); EOS # 0.2 10*3/uL (0.0-0.4); EOS % 1.7 % (1.0-4.0); HEMATOCRIT 49.5 % (42.0-52.0); LYMPH # 1.3 10*3/uL (1.3-4.4); LYMPH % 11.4 % (27.0-41.0); MEAN CELL VOLUME 91.7 fl (80.0-94.0); MEAN CORPUSCULAR HGB 31.1 pg (27.0-31.0); MEAN CORPUSCULAR HGB CONC 33.9 g/dl (33.0-37.0); MEAN PLATELET VOLUME 10.1 fl (9.6-12.3); MONO # 0.5 10*3/uL (0.1-1.0); MONO % 4.4 % (3.0-9.0); NEUT # 9.2 10*3/uL (2.3-7.9); NEUT % 81.1 % (47.0-73.0); PLATELET COUNT AUTOMATED 298 10*3/uL (130-400); RED CELL DISTRI WIDTH 12.4 % (0-14.5); WHITE BLOOD COUNT 11.3 10*3/uL (4.8-10.8)
[2021-02-09 06:57] LABS: ALBUMIN 4.2 gm/dl (3.1-4.5); CREATININE 1.49 mg/dL (0.70-1.30); POTASSIUM 3.5 mmol/L (3.5-5.1); TOTAL PROTEIN 8.3 gm/dL (6.4-8.2)
[2021-02-09] MEDS ORDERED: ZOFRAN4 MG PO (07:21)
== END 2021-02-09 07:23 | disposition home or self-care (01) ==
LOC: ED 06:18
PROVIDERS: Internal Medicine
DX: K29.00 Acute gastritis without bleeding (principal); Z88.0 Allergy status to penicillin

== ENCOUNTER → 2021-02-19 | Day surgery (SDC) | payer OTHER ==
[~2021-02-19] VITALS: Ht 198.1 cm; Wt 106.6 kg
[~2021-02-19] MED LIST changes: +ACID REDUCER20 MG PO; +CARAFATE1 GM PO; +ZOFRAN4 MG PO
[2021-02-19 07:37] VITALS: BP 136/71
[2021-02-19 08:06] VITALS: BP 107/62
[2021-02-19 08:21] VITALS: BP 113/66
[2021-02-19 08:36] VITALS: BP 105/68
== END | disposition home or self-care (01) ==
LOC: SDC 02-16 08:00
PROVIDERS: ATTEND Surgery
DX: R10.9 Unspecified abdominal pain (principal); K29.70 Gastritis, unspecified, without bleeding; K29.80 Duodenitis without bleeding; R11.2 Nausea with vomiting, unspecified; K21.9 Gastro-esophageal reflux disease without esophagitis; I48.91 Unspecified atrial fibrillation; Z88.0 Allergy status to penicillin; Z79.899 Other long term (current) drug therapy; Z20.822 Contact with and (suspected) exposure to COVID-19

== ENCOUNTER 2021-04-23 23:58 | Emergency (ER) | payer OTHER ==
[~2021-04-23] VITALS: Ht 198.1 cm; Wt 111.1 kg
[2021-04-24 00:38] LABS: BASO # 0.1 10*3/uL (0.0-0.1); BASO % 0.9 % (0.0-1.0); EOS # 0.3 10*3/uL (0.0-0.4); EOS % 3.9 % (1.0-4.0); LYMPH # 2.2 10*3/uL (1.3-4.4); LYMPH % 29.8 % (27.0-41.0); MEAN CELL VOLUME 91.5 fl (80.0-94.0); MEAN CORPUSCULAR HGB 31.6 pg (27.0-31.0); MEAN CORPUSCULAR HGB CONC 34.5 g/dl (33.0-37.0); MEAN PLATELET VOLUME 10.2 fl (9.6-12.3); MONO # 0.6 10*3/uL (0.1-1.0); MONO % 7.8 % (3.0-9.0); NEUT # 4.2 10*3/uL (2.3-7.9); NEUT % 57.3 % (47.0-73.0); PLATELET COUNT AUTOMATED 221 10*3/uL (130-400); RED BLOOD COUNT 4.59 10*6/uL (4.50-5.90); RED CELL DISTRI WIDTH 12.4 % (0-14.5); WHITE BLOOD COUNT 7.4 10*3/uL (4.8-10.8)
[2021-04-24 00:56] LABS: ALKALINE PHOSPHATASE 86 U/L (45-117); BUN 21 mg/dl (7-24); CHLORIDE 109 mmol/L (98-107); POTASSIUM 3.7 mmol/L (3.5-5.1); SGOT/AST 31 IU/L (3-35); SGPT/ALT 47 U/L (12-78); SODIUM 139 mmol/L (136-145); TOTAL PROTEIN 6.6 gm/dL (6.4-8.2)
== END 2021-04-24 04:59 | disposition home or self-care (01) ==
LOC: ED 23:58
PROVIDERS: Internal Medicine
DX: R06.00 Dyspnea, unspecified (principal); Z88.0 Allergy status to penicillin; Z79.899 Other long term (current) drug therapy

== ENCOUNTER → 2021-05-12 | Outpatient (CLI) | payer OTHER ==
[2021-05-18 14:08] LABS: FREE PSA 0.477 ng/mL (.)
== END | disposition home or self-care (01) ==
LOC: LAB 13:37
PROVIDERS: ATTEND Family Medicine
DX: N40.0 Benign prostatic hyperplasia without lower urinary tract symptoms (principal)

== ENCOUNTER → 2021-06-28 | Outpatient (CLI) | payer OTHER | END | disposition home or self-care (01) | LOC: US 08:30 | PROVIDERS: ATTEND Internal Medicine Gastroenterology | DX: N20.0 Calculus of kidney (principal); K76.0 Fatty (change of) liver, not elsewhere classified; K29.70 Gastritis, unspecified, without bleeding; K65.1 Peritoneal abscess ==

== ENCOUNTER → 2021-07-23 | Outpatient (CLI) | payer OTHER | END | disposition home or self-care (01) | LOC: RAD 15:42 | PROVIDERS: ATTEND Family Medicine | DX: U07.1 COVID-19 (principal) ==

== ENCOUNTER → 2021-10-06 | Outpatient (CLI) | payer OTHER ==
[2021-10-06 11:18] LABS: BILIRUBIN Negative (Negative); BLOOD 2+ (Negative); CLARITY Clear (Clear); COLOR Yellow (Yellow); GLUCOSE Negative (Negative); KETONE Negative (Negative); LEUKO ESTERASE Negative (Negative); NITRITE Negative (Negative); PH 5.5 (4.5-8.0); UROBILINOGEN 0.2 E.U./dl (0.0-1.0)
[2021-10-06 11:20] LABS: BASO # 0.1 10*3/uL (0.0-0.1); BASO % 1.6 % (0.0-1.0); EOS # 0.3 10*3/uL (0.0-0.4); EOS % 4.1 % (1.0-4.0); HEMATOCRIT 41.5 % (42.0-52.0); LYMPH # 1.4 10*3/uL (1.3-4.4); LYMPH % 22.1 % (27.0-41.0); MEAN CELL VOLUME 94.3 fl (80.0-94.0); MEAN CORPUSCULAR HGB 31.6 pg (27.0-31.0); MEAN CORPUSCULAR HGB CONC 33.5 g/dl (33.0-37.0); MEAN PLATELET VOLUME 10.2 fl (9.6-12.3); MONO # 0.4 10*3/uL (0.1-1.0); MONO % 6.5 % (3.0-9.0); NEUT # 4.1 10*3/uL (2.3-7.9); NEUT % 65.4 % (47.0-73.0); PLATELET COUNT AUTOMATED 238 10*3/uL (130-400); RED CELL DISTRI WIDTH 12.8 % (0-14.5); RETICULOCYTE % 1.29 % (0.50-2.50); WHITE BLOOD COUNT 6.3 10*3/uL (4.8-10.8)
[2021-10-06 11:25] LABS: WBC 0-2 wbc/hpf (0-5)
[2021-10-06 11:37] LABS: BUN 22 mg/dl (7-24); CHLORIDE 111 mmol/L (98-107); CHOLESTEROL 162 mg/dL (<200); CREATININE 1.22 mg/dL (0.70-1.30); GAMMA GLUTAMYL TRANSPEPTIDASE 43 U/L (15-85); LIPASE 183 U/L (73-393); SGOT/AST 12 IU/L (3-35); SGPT/ALT 29 U/L (12-78); SODIUM 142 mmol/L (136-145); TOTAL PROTEIN 6.9 gm/dL (6.4-8.2); TRIGLYCERIDES 153 mg/dl (<150); URIC ACID 5.9 mg/dL (3.5-7.2)
[2021-10-06 11:46] LABS: ALKALINE PHOSPHATASE 77 U/L (45-117); IRON 76 ug/dL (65-175); LDL CHOLESTEROL 93 mg/dL (9-159)
[2021-10-06 12:13] LABS: FERRITIN 136.2 ng/mL (22.0-322.0)
[2021-10-07 05:06] LABS: RHEUMATOID FACTOR <10.0 IU/mL (<14.0)
[2021-10-07 14:07] LABS: ANTI-DSDNA ANTIBODIES 1 IU/mL (0-9)
== END | disposition home or self-care (01) ==
LOC: LAB 10:36
PROVIDERS: ATTEND Family Medicine
DX: J43.8 Other emphysema (principal); R53.83 Other fatigue; E78.5 Hyperlipidemia, unspecified; E55.9 Vitamin D deficiency, unspecified; R74.8 Abnormal levels of other serum enzymes; R79.89 Other specified abnormal findings of blood chemistry; Z12.5 Encounter for screening for malignant neoplasm of prostate

== ENCOUNTER 2021-11-02 22:34 | Emergency (ER) | payer OTHER ==
[~2021-11-02] VITALS: Ht 182.8 cm; Wt 96.7 kg
[2021-11-02 23:01] LABS: BASO # 0.1 10*3/uL (0.0-0.1); BASO % 0.4 % (0.0-1.0); EOS % 0.1 % (1.0-4.0); HEMATOCRIT 47.8 % (42.0-52.0); LYMPH # 0.8 10*3/uL (1.3-4.4); LYMPH % 6.3 % (27.0-41.0); MEAN CELL VOLUME 89.5 fl (80.0-94.0); MEAN CORPUSCULAR HGB 31.5 pg (27.0-31.0); MEAN CORPUSCULAR HGB CONC 35.1 g/dl (33.0-37.0); MEAN PLATELET VOLUME 9.7 fl (9.6-12.3); MONO # 0.7 10*3/uL (0.1-1.0); MONO % 5.1 % (3.0-9.0); NEUT # 11.8 10*3/uL (2.3-7.9); NEUT % 87.8 % (47.0-73.0); PLATELET COUNT AUTOMATED 355 10*3/uL (130-400); RED BLOOD COUNT 5.34 10*6/uL (4.50-5.90); RED CELL DISTRI WIDTH 12.5 % (0-14.5); WHITE BLOOD COUNT 13.4 10*3/uL (4.8-10.8)
[2021-11-02 23:27] LABS: CREATININE 1.85 mg/dL (0.70-1.30); POTASSIUM 3.4 mmol/L (3.5-5.1); TOTAL PROTEIN 8.1 gm/dL (6.4-8.2)
[2021-11-03] MEDS ORDERED: DICYCLOMINE HCL10 MG PO (00:06)
[2021-11-03] MEDS ORDERED: FAMOTIDINE20 M1 PO (00:07)
[2021-11-03] MEDS ORDERED: CIPRO500 MG PO (00:48)
[2021-11-03] MEDS ORDERED: ONDANSETRON4 MG SL (00:48)
[2021-11-03] MEDS ORDERED: METRONIDAZOLE500 M1 PO (00:48)
== END 2021-11-03 00:56 | disposition home or self-care (01) ==
LOC: ED 22:34
PROVIDERS: Internal Medicine
DX: K82.8 Other specified diseases of gallbladder (principal); E87.6 Hypokalemia; D72.829 Elevated white blood cell count, unspecified; N18.9 Chronic kidney disease, unspecified; R11.2 Nausea with vomiting, unspecified; Z79.899 Other long term (current) drug therapy; Z88.0 Allergy status to penicillin

== ENCOUNTER 2021-11-10 05:33 | Emergency (ER) | payer OTHER ==
[~2021-11-10] VITALS: Wt 99.8 kg
[~2021-11-10 05:33] MED LIST changes: +CIPRO500 MG PO; +DICYCLOMINE HCL10 MG PO; +FAMOTIDINE20 M1 PO; +METRONIDAZOLE500 M1 PO; +ONDANSETRON4 MG SL
[2021-11-10 06:20] LABS: BASO # 0.1 10*3/uL (0.0-0.1); BASO % 0.8 % (0.0-1.0); EOS # 0.1 10*3/uL (0.0-0.4); EOS % 0.6 % (1.0-4.0); HEMATOCRIT 47.4 % (42.0-52.0); LYMPH # 0.8 10*3/uL (1.3-4.4); LYMPH % 7.4 % (27.0-41.0); MEAN CELL VOLUME 89.6 fl (80.0-94.0); MEAN CORPUSCULAR HGB 31.6 pg (27.0-31.0); MEAN CORPUSCULAR HGB CONC 35.2 g/dl (33.0-37.0); MEAN PLATELET VOLUME 10.3 fl (9.6-12.3); MONO # 0.4 10*3/uL (0.1-1.0); MONO % 4.1 % (3.0-9.0); NEUT # 9.3 10*3/uL (2.3-7.9); NEUT % 86.7 % (47.0-73.0); PLATELET COUNT AUTOMATED 304 10*3/uL (130-400); RED BLOOD COUNT 5.29 10*6/uL (4.50-5.90); RED CELL DISTRI WIDTH 12.4 % (0-14.5); WHITE BLOOD COUNT 10.7 10*3/uL (4.8-10.8)
[2021-11-10 06:28] LABS: CREATININE 1.48 mg/dL (0.70-1.30); POTASSIUM 3.3 mmol/L (3.5-5.1); TOTAL PROTEIN 8.2 gm/dL (6.4-8.2)
== END 2021-11-10 11:45 | disposition home or self-care (01) ==
LOC: ED 05:33
PROVIDERS: Internal Medicine
DX: R11.2 Nausea with vomiting, unspecified (principal); R19.7 Diarrhea, unspecified; Z88.0 Allergy status to penicillin; Z87.891 Personal history of nicotine dependence

== ENCOUNTER 2021-11-29 22:09 | Emergency (ER) | payer OTHER ==
[~2021-11-29] VITALS: Ht 198.1 cm; Wt 99.8 kg
[2021-11-29 22:30] LABS: BASO # 0.1 10*3/uL (0.0-0.1); EOS # 0.1 10*3/uL (0.0-0.4); HEMATOCRIT 48.3 % (42.0-52.0); LYMPH % 9.7 % (27.0-41.0); MEAN CELL VOLUME 91.7 fl (80.0-94.0); MEAN CORPUSCULAR HGB 30.9 pg (27.0-31.0); MEAN CORPUSCULAR HGB CONC 33.7 g/dl (33.0-37.0); MEAN PLATELET VOLUME 9.9 fl (9.6-12.3); MONO # 0.5 10*3/uL (0.1-1.0); NEUT # 8.7 10*3/uL (2.3-7.9); PLATELET COUNT AUTOMATED 328 10*3/uL (130-400); RED BLOOD COUNT 5.27 10*6/uL (4.50-5.90); RED CELL DISTRI WIDTH 12.6 % (0-14.5); WHITE BLOOD COUNT 10.5 10*3/uL (4.8-10.8)
[2021-11-29 22:43] LABS: ACT PARTIAL THROMBO TIME 27.6 SECONDS (20.0-32.1); INTERNATIONAL NORM RATIO 1.1 (2.0-3.5)
[2021-11-29 22:47] LABS: CREATININE 1.55 mg/dL (0.70-1.30); POTASSIUM 3.7 mmol/L (3.5-5.1); TOTAL PROTEIN 8.4 gm/dL (6.4-8.2)
[2021-11-29 22:52] LABS: LIPASE 113 U/L (73-393)
== END 2021-11-30 01:19 | disposition left against medical advice (07) ==
LOC: ED 22:09
PROVIDERS: Family Medicine
DX: R07.9 Chest pain, unspecified (principal); Z88.0 Allergy status to penicillin; Z79.899 Other long term (current) drug therapy; Z87.891 Personal history of nicotine dependence

== ENCOUNTER → 2021-11-29 | Day surgery (SDC) | payer OTHER ==
[2021-11-25 14:02] VITALS: BP 123/71
[2021-11-25 15:01] LABS: BUN 17 mg/dl (7-24); CHLORIDE 109 mmol/L (98-107); CREATININE 1.14 mg/dL (0.70-1.30); POTASSIUM 4.1 mmol/L (3.5-5.1); SODIUM 144 mmol/L (136-145)
[~2021-11-29] VITALS: Ht 198.1 cm; Wt 98.4 kg
[~2021-11-29] MED LIST changes: +ONDANSETRON HYDR4 M1 PO; +PROTONIX TR40 M1 PO
[2021-11-29 10:02] VITALS: BP 135/72
== END | disposition home or self-care (01) ==
LOC: SDC 11-25 14:00
PROVIDERS: ATTEND Surgery
DX: K80.20 Calculus of gallbladder without cholecystitis without obstruction (principal); K21.9 Gastro-esophageal reflux disease without esophagitis; I48.91 Unspecified atrial fibrillation; Z53.8 Procedure and treatment not carried out for other reasons

== ENCOUNTER → 2021-12-10 | Outpatient (CLI) | payer OTHER | END | disposition home or self-care (01) | LOC: LAB 08:53 | PROVIDERS: ATTEND Family Medicine | DX: E78.5 Hyperlipidemia, unspecified (principal); E55.9 Vitamin D deficiency, unspecified; R79.89 Other specified abnormal findings of blood chemistry; R53.83 Other fatigue; R74.8 Abnormal levels of other serum enzymes ==

== ENCOUNTER → 2022-01-06 | Outpatient (CLI) | payer OTHER | END | disposition home or self-care (01) | LOC: CARD 00:12 | PROVIDERS: ATTEND Internal Medicine Cardiovascular Disease | DX: R94.31 Abnormal electrocardiogram [ECG] [EKG] (principal) ==

== ENCOUNTER → 2022-03-04 | Outpatient (CLI) | payer OTHER | END | disposition home or self-care (01) | LOC: LAB 13:27 | PROVIDERS: ATTEND Urology | DX: Z12.5 Encounter for screening for malignant neoplasm of prostate (principal) ==

== ENCOUNTER → 2022-10-27 | Outpatient (CLI) | payer OTHER ==
[~2022-10-27] MED LIST changes: +TAMSULOSIN HCL0.4 MG PO
== END | disposition home or self-care (01) ==
LOC: RAD 15:39
PROVIDERS: ATTEND Family Medicine
DX: M48.07 Spinal stenosis, lumbosacral region (principal); M47.817 Spondylosis without myelopathy or radiculopathy, lumbosacral region

== ENCOUNTER → 2023-01-26 | Outpatient (CLI) | payer MEDICARE ==
[2023-01-26 09:32] LABS: BASO # 0.1 10*3/uL (0.0-0.1); BASO % 1.6 % (0.0-1.0); EOS # 0.2 10*3/uL (0.0-0.4); EOS % 3.3 % (1.0-4.0); HEMATOCRIT 51.4 % (42.0-52.0); LYMPH # 1.7 10*3/uL (1.3-4.4); MEAN CELL VOLUME 94.1 fl (80.0-94.0); MEAN CORPUSCULAR HGB 31.1 pg (27.0-31.0); MEAN CORPUSCULAR HGB CONC 33.1 g/dl (33.0-37.0); MEAN PLATELET VOLUME 10.2 fl (9.6-12.3); MONO # 0.5 10*3/uL (0.1-1.0); NEUT # 4.1 10*3/uL (2.3-7.9); NEUT % 61.8 % (47.0-73.0); PLATELET COUNT AUTOMATED 222 10*3/uL (130-400); RED BLOOD COUNT 5.46 10*6/uL (4.50-5.90); RED CELL DISTRI WIDTH 11.9 % (0-14.5); RETICULOCYTE % 1.83 % (0.50-2.50); WHITE BLOOD COUNT 6.7 10*3/uL (4.8-10.8)
[2023-01-26 10:18] LABS: ALKALINE PHOSPHATASE 65 U/L (46-116); BUN 17 mg/dl (9-23); CHLORIDE 105 mmol/L (98-107); CHOLESTEROL 244 mg/dL (<200); GAMMA GLUTAMYL TRANSPEPTIDASE 67 U/L (0-73); LDL CHOLESTEROL 172 mg/dL (9-159); POTASSIUM 3.8 mmol/L (3.4-5.1); SGPT/ALT 29 U/L (5-49); T3 UPTAKE 26.6 % (22.4-36.7); THYROXINE (T4) TOTAL 11.1 ug/dl (4.5-10.9); TOTAL PROTEIN 7.8 gm/dL (6.0-8.0); TRIGLYCERIDES 125 mg/dl (<150); VITAMIN D, 25-HYDROXY 26.8 ng/mL (30-100)
== END | disposition home or self-care (01) ==
LOC: LAB 09:10
PROVIDERS: ATTEND Family Medicine
DX: Z12.5 Encounter for screening for malignant neoplasm of prostate (principal); R79.89 Other specified abnormal findings of blood chemistry; R53.83 Other fatigue; E78.5 Hyperlipidemia, unspecified; E55.9 Vitamin D deficiency, unspecified

== ENCOUNTER → 2023-01-27 | Outpatient (CLI) | payer MEDICARE ==
[2023-01-27 08:30] LABS: BILIRUBIN Negative (Negative); BLOOD Trace-Lysed (Negative); CLARITY Clear (Clear); COLOR Yellow (Yellow); GLUCOSE Negative (Negative); KETONE Negative (Negative); LEUKO ESTERASE Negative (Negative); NITRITE Negative (Negative); PH 5.5 (4.5-8.0); SPECIFIC GRAVITY 1.015 (1.001-1.030); UROBILINOGEN 0.2 E.U./dl (0.0-1.0)
[2023-01-27 08:38] LABS: EPITHELIAL CELLS 0-2; HYALINE CAST 0-2; RBC 0-2 rbc/hpf (0-2); WBC 0-2 wbc/hpf (0-5)
== END | disposition home or self-care (01) ==
LOC: LAB 08:08
PROVIDERS: ATTEND Family Medicine
DX: E78.5 Hyperlipidemia, unspecified (principal); R79.89 Other specified abnormal findings of blood chemistry; R53.83 Other fatigue; E55.9 Vitamin D deficiency, unspecified

== ENCOUNTER 2023-08-31 09:55 | Emergency (ER) | payer OTHER ==
[~2023-08-31] VITALS: Ht 198.1 cm; Wt 114.8 kg
[2023-09-01] MEDS ORDERED: DICYCLOMINE HYD20 MG PO (06:53)
[2023-09-01] MEDS ORDERED: CIPRO500 MG PO (09:52)
[2023-09-01] MEDS ORDERED: METRONIDAZOLE500 M1 PO (09:52)
== END 2023-08-31 10:31 | disposition left against medical advice (07) ==
LOC: ED 09:55
DX: R11.2 Nausea with vomiting, unspecified (principal); R19.7 Diarrhea, unspecified; R63.0 Anorexia; Z53.21 Procedure and treatment not carried out due to patient leaving prior to being seen by health care provider

== ENCOUNTER → 2023-09-18 | Outpatient (CLI) | payer OTHER ==
[~2023-09-18] MED LIST changes: +DICYCLOMINE HYD20 MG PO; +SINCALIDE 2.4 MCG in SODIUM CHLORIDE 0.9% 50 ML IV ONE
== END | disposition home or self-care (01) ==
LOC: NM 00:46
PROVIDERS: ATTEND Family Medicine
DX: R10.84 Generalized abdominal pain (principal); R11.0 Nausea

== ENCOUNTER → 2023-09-25 | Outpatient (CLI) | payer OTHER ==
[~2023-09-25] MED LIST changes: +IOHEXOL 350 MG/ML 100 ML VIAL IV ONE; -SINCALIDE 2.4 MCG in SODIUM CHLORIDE 0.9% 50 ML IV ONE; +SODIUM CHLORIDE 0.9% 100 ML BAG IV ONE
[2023-09-25 10:33] LABS: BASO # 0.1 10*3/uL (0.0-0.1); BASO % 1.3 % (0.0-1.0); EOS # 0.2 10*3/uL (0.0-0.4); EOS % 2.2 % (1.0-4.0); HEMATOCRIT 44.8 % (42.0-52.0); LYMPH # 1.3 10*3/uL (1.3-4.4); LYMPH % 18.3 % (27.0-41.0); MEAN CELL VOLUME 92.2 fl (80.0-94.0); MEAN CORPUSCULAR HGB 31.5 pg (27.0-31.0); MEAN CORPUSCULAR HGB CONC 34.2 g/dl (33.0-37.0); MONO # 0.5 10*3/uL (0.1-1.0); NEUT # 5.1 10*3/uL (2.3-7.9); NEUT % 70.9 % (47.0-73.0); PLATELET COUNT AUTOMATED 224 10*3/uL (130-400); RED BLOOD COUNT 4.86 10*6/uL (4.50-5.90); RED CELL DISTRI WIDTH 12.8 % (0-14.5); RETICULOCYTE % 1.81 % (0.50-2.50); WHITE BLOOD COUNT 7.2 10*3/uL (4.8-10.8)
[2023-09-25 10:48] LABS: BILIRUBIN Negative (Negative); BLOOD 1+ (Negative); CLARITY Clear (Clear); COLOR Yellow (Yellow); GLUCOSE Negative (Negative); KETONE Negative (Negative); LEUKO ESTERASE Negative (Negative); NITRITE Negative (Negative); SPECIFIC GRAVITY 1.015 (1.001-1.030); UROBILINOGEN 0.2 E.U./dl (0.0-1.0)
[2023-09-25 11:15] LABS: ALKALINE PHOSPHATASE 60 U/L (46-116); BUN 17 mg/dl (9-23); CHLORIDE 108 mmol/L (98-107); CHOLESTEROL 192 mg/dL (<200); GAMMA GLUTAMYL TRANSPEPTIDASE 57 U/L (0-73); LDL CHOLESTEROL 133 mg/dL (9-159); POTASSIUM 3.8 mmol/L (3.4-5.1); SGPT/ALT 31 U/L (5-49); TRIGLYCERIDES 87 mg/dl (<150)
[2023-09-25 11:24] LABS: VITAMIN D, 25-HYDROXY 34.1 ng/mL (30-100)
[2023-09-25 11:34] LABS: RBC 0-2 rbc/hpf (0-2); WBC 0-2 wbc/hpf (0-5)
== END | disposition home or self-care (01) ==
LOC: CT 08:00 → LAB 09:31
PROVIDERS: ATTEND Family Medicine
DX: E55.9 Vitamin D deficiency, unspecified (principal); R79.89 Other specified abnormal findings of blood chemistry; R53.83 Other fatigue; E78.5 Hyperlipidemia, unspecified

== ENCOUNTER → 2023-10-02 | Outpatient (CLI) | payer OTHER ==
[~2023-10-02] MED LIST changes: -IOHEXOL 350 MG/ML 100 ML VIAL IV ONE; -SODIUM CHLORIDE 0.9% 100 ML BAG IV ONE
[2023-10-02 13:44] LABS: ALKALINE PHOSPHATASE 57 U/L (46-116); BUN 15 mg/dl (9-23); CHLORIDE 111 mmol/L (98-107); POTASSIUM 3.7 mmol/L (3.4-5.1); SGPT/ALT 23 U/L (5-49); TOTAL PROTEIN 6.8 gm/dL (6.0-8.0)
== END | disposition home or self-care (01) ==
LOC: LAB 08:50
PROVIDERS: ATTEND Family Medicine
DX: R53.83 Other fatigue (principal); R79.89 Other specified abnormal findings of blood chemistry

== ENCOUNTER → 2023-11-08 | Outpatient (CLI) | payer OTHER | END | disposition home or self-care (01) | LOC: RAD 08:07 | PROVIDERS: ATTEND Family Medicine | DX: J44.9 Chronic obstructive pulmonary disease, unspecified (principal); R06.02 Shortness of breath; M47.814 Spondylosis without myelopathy or radiculopathy, thoracic region ==

== ENCOUNTER → 2024-01-02 | Outpatient (CLI) | payer OTHER ==
[2024-01-02 11:19] LABS: BASO # 0.1 10*3/uL (0.0-0.1); BASO % 1.5 % (0.0-1.0); EOS # 0.2 10*3/uL (0.0-0.4); EOS % 2.5 % (1.0-4.0); HEMATOCRIT 47.8 % (42.0-52.0); MEAN CELL VOLUME 91.6 fl (80.0-94.0); MEAN CORPUSCULAR HGB 30.8 pg (27.0-31.0); MEAN CORPUSCULAR HGB CONC 33.7 g/dl (33.0-37.0); MEAN PLATELET VOLUME 10.4 fl (9.6-12.3); MONO # 0.7 10*3/uL (0.1-1.0); MONO % 9.8 % (3.0-9.0); NEUT # 4.1 10*3/uL (2.3-7.9); NEUT % 60.2 % (47.0-73.0); PLATELET COUNT AUTOMATED 229 10*3/uL (130-400); RED BLOOD COUNT 5.22 10*6/uL (4.50-5.90); RED CELL DISTRI WIDTH 12.4 % (0-14.5); RETICULOCYTE % 1.54 % (0.50-2.50); WHITE BLOOD COUNT 6.8 10*3/uL (4.8-10.8)
[2024-01-02 11:21] LABS: BILIRUBIN Negative (Negative); BLOOD 2+ (Negative); CLARITY Clear (Clear); COLOR Yellow (Yellow); GLUCOSE Negative (Negative); KETONE Negative (Negative); LEUKO ESTERASE Negative (Negative); NITRITE Negative (Negative); PH 5.5 (4.5-8.0); UROBILINOGEN 0.2 E.U./dl (0.0-1.0)
[2024-01-02 12:17] LABS: ALKALINE PHOSPHATASE 70 U/L (46-116); BUN 16 mg/dl (9-23); CHLORIDE 104 mmol/L (98-107); CHOLESTEROL 165 mg/dL (<200); GAMMA GLUTAMYL TRANSPEPTIDASE 63 U/L (0-73); LDL CHOLESTEROL 107 mg/dL (9-159); POTASSIUM 4.4 mmol/L (3.4-5.1); SGPT/ALT 30 U/L (5-49); TOTAL PROTEIN 7.6 gm/dL (6.0-8.0); TRIGLYCERIDES 97 mg/dl (<150)
[2024-01-02 12:57] LABS: EPITHELIAL CELLS 0-2
== END | disposition home or self-care (01) ==
LOC: LAB 10:35
PROVIDERS: ATTEND Family Medicine
DX: Z12.5 Encounter for screening for malignant neoplasm of prostate (principal); R79.89 Other specified abnormal findings of blood chemistry; R53.83 Other fatigue; E78.5 Hyperlipidemia, unspecified; E55.9 Vitamin D deficiency, unspecified

== ENCOUNTER → 2024-05-27 | Outpatient (CLI) | payer OTHER | END | disposition home or self-care (01) | LOC: RAD 08:42 | PROVIDERS: ATTEND Family Medicine | DX: M19.032 Primary osteoarthritis, left wrist (principal); M19.042 Primary osteoarthritis, left hand; M79.642 Pain in left hand ==

== ENCOUNTER → 2024-07-16 | Outpatient (CLI) | payer OTHER ==
[2024-07-16 10:18] LABS: BASO # 0.1 10*3/uL (0.0-0.1); BASO % 1.1 % (0.0-1.0); EOS # 0.2 10*3/uL (0.0-0.4); EOS % 3.1 % (1.0-4.0); HEMATOCRIT 47.5 % (42.0-52.0); MEAN CELL VOLUME 94.4 fl (80.0-94.0); MEAN CORPUSCULAR HGB 31.4 pg (27.0-31.0); MEAN CORPUSCULAR HGB CONC 33.3 g/dl (33.0-37.0); MEAN PLATELET VOLUME 10.1 fl (9.6-12.3); MONO # 0.6 10*3/uL (0.1-1.0); NEUT # 4.6 10*3/uL (2.3-7.9); NEUT % 65.7 % (47.0-73.0); PLATELET COUNT AUTOMATED 231 10*3/uL (130-400); RED BLOOD COUNT 5.03 10*6/uL (4.50-5.90); RED CELL DISTRI WIDTH 12.3 % (0-14.5)
[2024-07-16 10:56] LABS: ALKALINE PHOSPHATASE 77 U/L (46-116); BUN 13 mg/dl (9-23); CHLORIDE 105 mmol/L (98-107); POTASSIUM 4.3 mmol/L (3.4-5.1); SGPT/ALT 59 U/L (5-49)
== END | disposition home or self-care (01) ==
LOC: LAB 09:44
PROVIDERS: ATTEND Nurse Practitioner
DX: D40.0 Neoplasm of uncertain behavior of prostate (principal); N32.81 Overactive bladder; R93.6 Abnormal findings on diagnostic imaging of limbs; R53.83 Other fatigue; Z12.5 Encounter for screening for malignant neoplasm of prostate

== ENCOUNTER → 2024-07-22 | Outpatient (CLI) | payer OTHER | END | disposition home or self-care (01) | LOC: US 01:41 | PROVIDERS: ATTEND Urology | DX: N52.9 Male erectile dysfunction, unspecified (principal); N32.81 Overactive bladder; R93.5 Abnormal findings on diagnostic imaging of other abdominal regions, including retroperitoneum ==

== ENCOUNTER 2024-09-09 07:20 | Emergency (ER) | payer OTHER, MEDICAID ==
[~2024-09-09] VITALS: Ht 198.1 cm; Wt 113.4 kg
[2024-09-09] MEDS ORDERED: diphenhydrAMINE hydrochloride 50 MG/ML VIAL IV ONE (07:45)
[2024-09-09] MEDS ORDERED: SODIUM CHLORIDE 0.9% 1,000 ML IV ONE (07:45)
[2024-09-09] MEDS ORDERED: Metoclopramide Hydrochloride 10 MG/2 ML VIAL IV ONE (07:45)
[2024-09-09 07:59] LABS: BASO # 0.1 10*3/uL (0.0-0.1); BASO % 0.6 % (0.0-1.0); EOS # 0.1 10*3/uL (0.0-0.4); EOS % 0.6 % (1.0-4.0); MEAN CELL VOLUME 91.7 fl (80.0-94.0); MEAN CORPUSCULAR HGB 31.1 pg (27.0-31.0); MEAN PLATELET VOLUME 10.1 fl (9.6-12.3); MONO # 0.6 10*3/uL (0.1-1.0); MONO % 6.3 % (3.0-9.0); NEUT # 8.5 10*3/uL (2.3-7.9); NEUT % 82.7 % (47.0-73.0); NUCLEATED RED BLOOD CELL 0.0 % (0.0-0.0); NUCLEATED RED BLOOD CELL 0.0 10*3/uL (0.0-0.0); PLATELET COUNT AUTOMATED 237 10*3/uL (130-400); RED CELL DISTRI WIDTH 12.1 % (0-14.5)
[2024-09-09 08:21] LABS: BUN 20 mg/dl (9-23); SGPT/ALT 30 U/L (5-49)
[2024-09-09 09:07] LABS: BILIRUBIN Negative (Negative); BLOOD 2+ (Negative); CLARITY Clear (Clear); COLOR Dark Yellow (Yellow); KETONE 1+ (Negative); LEUKO ESTERASE Negative (Negative); NITRITE Negative (Negative); PH 5.5 (4.5-8.0); SPECIFIC GRAVITY >= 1.030 (1.001-1.030); UROBILINOGEN 1.0 E.U./dl (0.0-1.0)
[2024-09-09 09:24] LABS: BACTERIA 1+; EPITHELIAL CELLS 0-2; MUCOUS 2+; WBC 0-2 wbc/hpf (0-5)
[2024-09-09] MEDS ORDERED: CIPRO500 MG PO (09:43)
[2024-09-09] MEDS ORDERED: REGLAN10 M1 PO (09:43)
== END 2024-09-09 09:48 | disposition home or self-care (01) ==
LOC: ED 07:20
PROVIDERS: Internal Medicine
DX: N39.0 Urinary tract infection, site not specified (principal); R11.2 Nausea with vomiting, unspecified; R19.7 Diarrhea, unspecified; Z87.891 Personal history of nicotine dependence; Z98.890 Other specified postprocedural states; Z88.0 Allergy status to penicillin; Z79.899 Other long term (current) drug therapy

== ENCOUNTER 2024-10-09 11:17 | Emergency (ER) | payer OTHER, MEDICAID ==
[~2024-10-09] VITALS: Ht 198.1 cm; Wt 113.4 kg
[~2024-10-09 11:17] MED LIST changes: +REGLAN10 M1 PO
[2024-10-09 12:09] LABS: BASO # 0.1 10*3/uL (0.0-0.1); BASO % 1.2 % (0.0-1.0); EOS # 0.2 10*3/uL (0.0-0.4); EOS % 2.3 % (1.0-4.0); MEAN CELL VOLUME 95.3 fl (80.0-94.0); MEAN CORPUSCULAR HGB 30.8 pg (27.0-31.0); MEAN PLATELET VOLUME 10.0 fl (9.6-12.3); MONO # 0.6 10*3/uL (0.1-1.0); MONO % 8.5 % (3.0-9.0); NEUT # 5.0 10*3/uL (2.3-7.9); NEUT % 72.4 % (47.0-73.0); NUCLEATED RED BLOOD CELL 0.0 % (0.0-0.0); NUCLEATED RED BLOOD CELL 0.0 10*3/uL (0.0-0.0); PLATELET COUNT AUTOMATED 193 10*3/uL (130-400); RED CELL DISTRI WIDTH 12.7 % (0-14.5)
[2024-10-09 12:23] LABS: BILIRUBIN Negative (Negative); BLOOD Negative (Negative); CLARITY Clear (Clear); COLOR Yellow (Yellow); KETONE Negative (Negative); LEUKO ESTERASE Negative (Negative); NITRITE Negative (Negative); PH 8.0 (4.5-8.0); SPECIFIC GRAVITY 1.020 (1.001-1.030); UROBILINOGEN 1.0 E.U./dl (0.0-1.0)
[2024-10-09 12:30] LABS: BUN 13 mg/dl (9-23)
[2024-10-09 12:38] LABS: BACTERIA 1+; WBC 0-2 wbc/hpf (0-5)
[2024-10-10] MEDS ORDERED: HYDROCODONE-AC1 EAC1 PO (08:40)
[2024-10-10] MEDS ORDERED: CLINDAMYCIN HC300 MG PO (08:40)
== END 2024-10-09 13:00 | disposition home or self-care (01) ==
LOC: ED 11:17
PROVIDERS: Nurse Practitioner Family
DX: S39.012A Strain of muscle, fascia and tendon of lower back, initial encounter (principal); R30.0 Dysuria; R10.9 Unspecified abdominal pain; K21.9 Gastro-esophageal reflux disease without esophagitis; I48.91 Unspecified atrial fibrillation; I25.2 Old myocardial infarction; N18.30 Chronic kidney disease, stage 3 unspecified; Z88.0 Allergy status to penicillin; Z79.899 Other long term (current) drug therapy; Z87.891 Personal history of nicotine dependence; X58.XXXA Exposure to other specified factors, initial encounter; Y93.89 Activity, other specified; Y92.89 Other specified places as the place of occurrence of the external cause; Y99.8 Other external cause status

== ENCOUNTER 2024-10-10 06:27 | Emergency (ER) | payer OTHER, MEDICAID ==
[~2024-10-10] VITALS: Ht 198.1 cm; Wt 113.4 kg
[2024-10-10] MEDS ORDERED: IOHEXOL 300 MG/ML 100 ML VIAL IV ONE (06:45)
[2024-10-10 07:07] LABS: BASO # 0.1 10*3/uL (0.0-0.1); BASO % 0.6 % (0.0-1.0); EOS # 0.1 10*3/uL (0.0-0.4); EOS % 0.8 % (1.0-4.0); MEAN CELL VOLUME 97.5 fl (80.0-94.0); MEAN CORPUSCULAR HGB 31.1 pg (27.0-31.0); MEAN PLATELET VOLUME 10.0 fl (9.6-12.3); MONO # 0.8 10*3/uL (0.1-1.0); MONO % 7.6 % (3.0-9.0); NEUT # 8.8 10*3/uL (2.3-7.9); NEUT % 83.0 % (47.0-73.0); NUCLEATED RED BLOOD CELL 0.0 % (0.0-0.0); NUCLEATED RED BLOOD CELL 0.0 10*3/uL (0.0-0.0); PLATELET COUNT AUTOMATED 201 10*3/uL (130-400); RED CELL DISTRI WIDTH 12.5 % (0-14.5)
[2024-10-10 08:17] LABS: BUN 11 mg/dl (9-23)
[2024-10-10] MEDS ORDERED: CLINDAMYCIN HC300 MG PO (08:40)
[2024-10-10] MEDS ORDERED: HYDROCODONE-AC1 EAC1 PO (08:40)
[2024-10-10] MEDS ORDERED: CLINDAMYCIN HCL 300 MG CAPSULE PO ONE (08:45)
[2024-10-10] MEDS ORDERED: Acetaminophen/Hydrocodone 5 MG/325 MG TABLET PO ONE (08:45)
== END 2024-10-10 09:03 | disposition home or self-care (01) ==
LOC: ED 06:27
PROVIDERS: Internal Medicine
DX: K02.9 Dental caries, unspecified (principal); R20.2 Paresthesia of skin; Z88.0 Allergy status to penicillin; Z79.899 Other long term (current) drug therapy; Z87.891 Personal history of nicotine dependence